=== PATIENT | male | born 1985 | race Two or more races ===

== ENCOUNTER 2018-02-17 12:50 | Inpatient (IN) | payer MEDICARE, OTHER ==
[~2018-02-17] VITALS: Ht 162.6 cm; Wt 60.8 kg
[~2018-02-17 12:50] MED LIST: AMBIEN10 M1 ORAL; AMBIEN10 MG ORAL; AZITHROMYCIN250 MG ORAL; CALCIUM ACETAT667 M1 ORAL; HYDROCODON-ACE1 EAC8 PO; LEVETIRACETAM500 MG ORAL; NORCO 5-325 TA1 EACH ORAL; NORCO 7.5-3251 EACH ORAL; NORVASC5 MG ORAL; RENVELA800 MG ORAL; SENSIPAR30 MG ORAL
[2018-02-17] MEDS ORDERED: NS 250 ML IVPB ONE (13:15)
[2018-02-17] MEDS ORDERED: Morphine Sulfate 4mg/ml Inj (IV USE ONLY) IVP ONE (13:15)
[2018-02-17 13:22] VITALS: BP 173/87
[2018-02-17 13:52] LABS: ANION GAP 10 mmol/L (5-15); BLOOD UREA NITROGEN 22 mg/dL (7-18); CALCIUM 9.3 MG/DL (8.5-10.1); CARBON DIOXIDE 28 MMOL/L (21-32); CHLORIDE 107 MMOL/L (98-107); CREATININE 6.9 MG/DL (0.55-1.30); POTASSIUM 4.3 MMOL/L (3.5-5.1); SODIUM 145 MMOL/L (136-145)
[2018-02-17] MEDS ORDERED: DiphenhydrAMINE 50mg/ml Inj IVP ONE (14:00)
[2018-02-17 14:07] LABS: ALANINE AMINOTRANSFERASE 30 U/L (12-78); ALBUMIN 4.1 G/DL (3.4-5.0); ALBUMIN/GLOBULIN RATIO 1.1 (1.0-2.7); ALKALINE PHOSPHATASE 176 U/L (46-116); ASPARTATE AMINO TRANSFERASE 25 U/L (15-37); BILIRUBIN,TOTAL 0.4 MG/DL (0.2-1.0); CREATINE KINASE 157 U/L (26-308)
[2018-02-17 14:18] LABS: HEMATOCRIT 30.6 % (42.0-52.0); HEMOGLOBIN 10.4 G/DL (14.2-18.0); MEAN CORPUSCULAR VOLUME 95 FL (80-99); PLATELET COUNT 78 K/UL (150-450); RED BLOOD COUNT 3.22 M/UL (4.70-6.10); RED CELL DISTRIBUTION WIDTH 11.3 % (11.6-14.8); WHITE BLOOD COUNT 4.8 K/UL (4.8-10.8)
--- NOTE | 2018-02-17 14:38 | Emergency Room Report ---
History of Present Illness General Chief Complaint: Abdominal Pain Source: Patient, Medical Record Present Illness HPI 32-year-old male presents ED for evaluation. Brought in for abdominal pain and vomiting. patient has history of end-stage renal disease on dialysis. Patient was at dialysis when he started to vomit and did not complete dialysis. Skipped dialysis yesterday. Presenting with abdominal pain and vomiting. Pain is sharp, 10 out of 10, nonradiating. Denies chest pain or shortness of breath. No other aggravating relieving factors. Denies any other associated symptoms Allergies: Uncoded Allergies: FISH (Adverse Reaction, Severe, NAUSEA,VOMITING, 09/24/11) MILK (Adverse Reaction, Severe, NAUSEA,VOMITING, 09/24/11) Patient History Past Medical History: HTN, renal disease, dialysis Past Surgical History: none Pertinent Family History: none Social History: Denies: smoking, alcohol use, drug use Immunizations: UTD Reviewed Nursing Documentation: PMH: Agreed; PSxH: Agreed Nursing Documentation-PMH Hx Cardiac Problems: No Hx Hypertension: Yes Hx Pacemaker: No Hx Asthma: No Hx COPD: No Hx Diabetes: No Hx Cancer: No Hx Gastrointestinal Problems: No Hx Dialysis: Yes - Wed Hx Neurological Problems: No Hx Cerebrovascular Accident: No Hx Seizures: No Review of Systems All Other Systems: negative except mentioned in HPI Physical Exam Vital Signs Date Time Temp Pulse Resp B/P (MAP) Pulse Ox O2 Delivery O2 Flow Rate FiO2 02/17/18 12:54 66 25 178/5 100 Room Air Sp02 EP Interpretation: reviewed, normal General Appearance: alert, GCS 15, non-toxic, mild distress Head: normocephalic, atraumatic Eyes: bilateral eye normal inspection, bilateral eye PERRL ENT: hearing grossly normal, normal pharynx, no angioedema, normal voice Neck: full range of motion, supple/symm/no masses Respiratory: chest non-tender, lungs clear, normal breath sounds, speaking full sentences Cardiovascular #1: regular rate, rhythm, no edema Cardiovascular #2: 2+ carotid (R), 2+ carotid (L), 2+ radial (R), 2+ radial (L) , 2+ dorsalis pedis (R), 2+ dorsalis pedis (L) Gastrointestinal: normal bowel sounds, soft, non-distended, no guarding, no rebound, tenderness Rectal: deferred Genitourinary: normal inspection, no CVA tenderness Musculoskeletal: back normal, gait/station normal, normal range of motion, non- tender Neurologic: alert, oriented x3, responsive, motor strength/tone normal, sensory intact, speech normal Psychiatric: judgement/insight normal, memory normal, mood/affect normal, no suicidal/homicidal ideation Reflexes: 3+ bicep (R), 3+ bicep (L), 3+ tricep (R), 3+ tricep (L), 3+ knee (R) , 3+ knee (L) Skin: normal color, no rash, warm/dry, well hydrated Lymphatic: no adenopathy Medical Decision Making Restraint Reassesment Hospital Course 32 yo M presents with abd pain/vomiting. missed dialysis today Differential diagnoses include: BPH, cystitis, pyelonephritis, kidney stone Clinical course Patient placed on stretcher. monitoring analyst. After initial history and physical I ordered labs, IV fluids, UA, pain medication and CT scan Labs - no leukocytosis, Hb/Hct stable, BUN/Cr 22/6.9, lipase 400 EKG - NSR no acute ischemic changes interpreted by me on reassessment pain is improved, but patient still unable to tolerate by mouth intake. Will require admission Case discussed with Dr. Downs and he agreed to accept the patient to his service for further care and support I feel this is a highly complex case requiring extensive working including EKG/ Rhythm strip, Xray/CT/US, Blood/urine lab work, repeat exams while in ED, and administration of strong opiates/narcotics for pain control, admission to hospital or close patient follow up. Diagnosis - ESRD on dialysis, abd pain, intractable pain Patient admitted to floor in serious condition Diagnostic Impression: Primary Impression: ESRD (end stage renal disease) on dialysis Additional Impressions: abdominal pain Intractable vomiting Qualified Codes: R11.2 - Nausea with vomiting, unspecified Labs Test 02/17/18 13:02 02/17/18 14:00 Sodium Level 145 MMOL/L (136-145) Potassium Level 4.3 MMOL/L (3.5-5.1) Chloride Level 107 MMOL/L (98-107) Carbon Dioxide Level 28 MMOL/L (21-32) Anion Gap 10 mmol/L (5-15) Blood Urea Nitrogen 22 mg/dL (7-18) Creatinine 6.9 MG/DL (0.55-1.30) Estimat Glomerular Filtration Rate 9.2 mL/min (>60) Glucose Level 104 MG/DL (74-106) Calcium Level 9.3 MG/DL (8.5-10.1) Total Bilirubin 0.4 MG/DL (0.2-1.0) Aspartate Amino Transf (AST/SGOT) 25 U/L (15-37) Alanine Aminotransferase (ALT/SGPT) 30 U/L (12-78) Alkaline Phosphatase 176 U/L (46-116) Total Creatine Kinase 157 U/L (26-308) Creatine Kinase MB 1.0 NG/ML (0.0-3.6) Creatine Kinase MB Relative Index 0.6 Troponin I 0.000 ng/mL (0.000-0.056) Total Protein 7.9 G/DL (6.4-8.2) Albumin 4.1 G/DL (3.4-5.0) Globulin 3.8 g/dL Albumin/Globulin Ratio 1.1 (1.0-2.7) Lipase 400 U/L (73-393) White Blood Count 4.8 K/UL (4.8-10.8) Red Blood Count 3.22 M/UL (4.70-6.10) Hemoglobin 10.4 G/DL (14.2-18.0) Hematocrit 30.6 % (42.0-52.0) Mean Corpuscular Volume 95 FL (80-99) Mean Corpuscular Hemoglobin 32.3 PG (27.0-31.0) Mean Corpuscular Hemoglobin Concent 34.0 G/DL (32.0-36.0) Red Cell Distribution Width 11.3 % (11.6-14.8) Platelet Count 78 K/UL (150-450) Mean Platelet Volume 9.2 FL (6.5-10.1) Neutrophils (%) (Auto) % (45.0-75.0) Lymphocytes (%) (Auto) % (20.0-45.0) Monocytes (%) (Auto) % (1.0-10.0) Eosinophils (%) (Auto) % (0.0-3.0) Basophils (%) (Auto) % (0.0-2.0) EKG Diagnostic Results Rate: bradycardiac Rhythm: NSR ST Segments: no acute changes ASA given to the pt in ED: No Rhythm Strip Diag. Results EP Interpretation: yes Rhythm: NSR, no PVC's, no ectopy Last Vital Signs Date Time Temp Pulse Resp B/P (MAP) Pulse Ox O2 Delivery O2 Flow Rate FiO2 02/17/18 13:22 61 25 173/87 100 Room Air Status: improved Disposition: ADMITTED INPATIENT Condition: Serious Referrals: Thelma Go MD (PCP) Jonathan Morris MD Feb 17, 2018 14:38
[2018-02-17 15:04] VITALS: BP 154/80
[2018-02-17 18:39] VITALS: BP 143/56
[2018-02-17 20:00] VITALS: BP 144/78
[2018-02-17] MEDS ORDERED: Acetaminophen 500mg (ES) tab ORAL PRN (23:15)
[2018-02-17] MEDS ORDERED: Zolpidem 5mg tab ORAL PRN (23:15)
[2018-02-17] MEDS ORDERED: HYDROcodone/Acetamin 7.5/325 tab ORAL PRN (23:15)
[2018-02-18] VITALS: BP 127/74
[2018-02-18] MEDS: DiphenhydrAMINE 50mg/ml Inj IVP PRN ×3 (00:55→20:41)
--- NOTE | 2018-02-18 01:30 | History and Physical Report ---
DATE OF ADMISSION: 02/17/2018 CHIEF COMPLAINT: Nausea, vomiting and abdominal pain. HISTORY OF PRESENT ILLNESS: This is a 32-year-old male, who had a partial dialysis today. He was brought in for abdominal pain, nausea and vomiting. The complaints were limited to during the dialysis, but started earlier this morning. PAST MEDICAL HISTORY: 1. End-stage renal failure, on dialysis. 2. Status post intracerebral bleeding about 7 years ago. 3. Seizure disorder. 4. History of Cholelithiasis. MEDICATIONS: [place] p.r.n., amlodipine, calcium acetate with meals, Sensipar, Keppra and Ambien. ALLERGIES: None known to medications. He is allergic to fish and milk. FAMILY HISTORY: Unremarkable. SOCIAL HISTORY: He lives at home. HABITS: Nonsmoker and nondrinker. There is no history of illicit drug abuse. REVIEW OF SYSTEMS: HEENT: Hearing and eyesight are normal. ENDOCRINE: No history of diabetes. He has secondary hyperparathyroidism. RESPIRATORY: Denies shortness of breath, cough, or hemoptysis. GASTROINTESTINAL: Please refer to history of present illness. NEUROLOGICAL: The patient had intercerebral bleed about 7 years ago when he started dialysis. He also has history of seizures. PHYSICAL EXAMINATION: GENERAL: This is a young chronically ill-appearing male who is in no acute distress. VITAL SIGNS: Blood pressure 173/87, pulse 61 and regular, and respirations 25. HEENT: The head is normocephalic and atraumatic. Pupils are equal, round, and reactive to light and accommodation consensually. NECK: Supple. Trachea midline. There was no lymphadenopathy or thyromegaly. LUNGS: Clear to auscultation and percussion. HEART: Regular rate and rhythm without rubs, murmurs, or gallops noted. ABDOMEN: Soft and nontender. Bowel sounds were active. EXTREMITIES: No clubbing, cyanosis, or edema. NEUROLOGICAL: He is alert and oriented x4. He is dysarthric. He has left hemiparesis. LABORATORY AND ANCILLARY DATA: CBC, hemoglobin 10.4, otherwise within normal limits. Chemistry, electrolytes within normal limits. BUN 22, creatinine 6.9 and alkaline phosphatase 176. Albumin 4.1. ASSESSMENT: Nausea and vomiting, etiology unclear. PLAN: 1. Obtain the abdominal ultrasound. 2. Consider GI consult. Thelma Go M.D. DR: SHANNAN JOB#: [id number] CC: ARIS
[2018-02-18 04:00] VITALS: BP 129/72
[2018-02-18] MEDS: Norco 5mg/325mg tab ORAL PRN ×2 (05:12→17:06)
[2018-02-18 08:00] VITALS: BP 132/78
[2018-02-18] MEDS ORDERED: Heparin 5000 units/ml inj SUBQ SCH (09:00)
--- NOTE | 2018-02-18 10:57 | Nephrology Progress Note ---
Assessment/Plan Plan Vomiting - had Abd US done. Results P ESRD _HD soon. Subjective Subjective Less Nausea. Objective Objective Last 24 Hour Vital Signs Date Time Temp Pulse Resp B/P (MAP) Pulse Ox O2 Delivery O2 Flow Rate FiO2 02/18/18 09:00 Room Air 02/18/18 04:00 97.2 53 20 129/72 (91) 100 97.2 02/18/18 00:00 98.3 57 20 127/74 (91) 100 98.3 02/17/18 21:00 Room Air 02/17/18 20:00 98.6 53 18 144/78 (100) 100 98.6 02/17/18 18:39 99.4 71 20 143/56 100 Room Air 99.4 02/17/18 18:15 Room Air 02/17/18 17:40 99.4 65 20 154/80 100 Room Air 99.4 02/17/18 15:04 99.4 65 20 154/80 100 Room Air 99.4 02/17/18 13:22 61 25 173/87 100 Room Air 02/17/18 12:54 66 25 178/5 100 Room Air Intake and Output 02/17/18 02/18/18 19:00 07:00 Intake Total 250 ml Balance 250 ml Intake IV Total 250 ml # Voids 1 Laboratory Tests 02/17/18 13:02: Sodium Level 145, Potassium Level 4.3, Chloride Level 107, Carbon Dioxide Level 28, Anion Gap 10, Blood Urea Nitrogen 22H, Creatinine 6.9H, Estimat Glomerular Filtration Rate 9.2, Glucose Level 104, Calcium Level 9.3, Total Bilirubin 0.4, Aspartate Amino Transf (AST/SGOT) 25, Alanine Aminotransferase (ALT/SGPT) 30, Alkaline Phosphatase 176H, Total Creatine Kinase 157, Creatine Kinase MB 1.0, Creatine Kinase MB Relative Index 0.6, Troponin I 0.000, Total Protein 7.9, Albumin 4.1, Globulin 3.8, Albumin/Globulin Ratio 1.1, Lipase 400H 02/17/18 14:00: White Blood Count 4.8, Red Blood Count 3.22L, Hemoglobin 10.4L, Hematocrit 30.6L , Mean Corpuscular Volume 95, Mean Corpuscular Hemoglobin 32.3H, Mean Corpuscular Hemoglobin Concent 34.0, Red Cell Distribution Width 11.3L, Platelet Count 78L, Mean Platelet Volume 9.2, Neutrophils (%) (Auto) , Lymphocytes (%) (Auto) , Monocytes (%) (Auto) , Eosinophils (%) (Auto) , Basophils (%) (Auto) , Differential Total Cells Counted 100, Neutrophils % ( Manual) 75, Lymphocytes % (Manual) 14L, Monocytes % (Manual) 7, Eosinophils % ( Manual) 3, Basophils % (Manual) 1, Band Neutrophils 0, Platelet Estimate DecreasedL, Platelet Morphology Normal, Hypochromasia 1+, Anisocytosis 1+ Height (Feet): 5 Height (Inches): 4.00 Weight (Pounds): 150 Objective CV RR Lungs CTA Abd SNT. BS + E no CCE. AMY AVF+ bruit Neuro Lt. hemiparesis Thelma Go MD Feb 18, 2018 10:57
--- NOTE | 2018-02-18 11:34 | Diagnostic Imaging Report ---
Indication: Abdominal pain, vomiting, abnormal liver function tests and renal function tests, history of chronic renal failure Technique: Kumar-scale and duplex images of the upper abdomen were obtained. Doppler interrogation of the hepatic vessels Comparison: No comparison sonograms. Reference made to abdomen pelvis CT 09/23/2011 Findings: Gallbladder contains large gallstones. No gallbladder wall thickening nor pericholecystic fluid Sonographic Omer's sign is negative. Common bile duct measures 3 mm in diameter. No intrahepatic biliary ductal dilatation. Liver demonstrates normal echogenicity, no focal abnormality. Portal vein and hepatic veins are patent on Doppler imaging. Pancreas is unremarkable. The spleen is borderline enlarged, measuring 13 cm long axis dimension Left kidney measures 9.7 cm in length. Right kidney measures 9.9 cm length. Both kidneys demonstrate markedly increased echogenicity. There is no hydronephrosis. There are multiple cysts in the left kidney and right kidney . Non-aneurysmal abdominal aorta . Impression: Cholelithiasis. Negative for dilated ducts Bilateral echogenic kidneys, consistent with known history of chronic renal failure Borderline splenomegaly Incidental finding bilateral renal cysts
[2018-02-18 12:00] VITALS: BP 134/76
[2018-02-18 13:47] LABS: HEMOGLOBIN 9.1 G/DL (14.2-18.0); MEAN CORPUSCULAR VOLUME 96 FL (80-99); PLATELET COUNT 80 K/UL (150-450); RED BLOOD COUNT 2.83 M/UL (4.70-6.10); RED CELL DISTRIBUTION WIDTH 11.7 % (11.6-14.8); WHITE BLOOD COUNT 4.9 K/UL (4.8-10.8)
[2018-02-18 14:05] LABS: ALANINE AMINOTRANSFERASE 32 U/L (12-78); ALBUMIN 3.1 G/DL (3.4-5.0); ALKALINE PHOSPHATASE 129 U/L (46-116); AMYLASE 148 U/L (25-115); ANION GAP 9 mmol/L (5-15); ASPARTATE AMINO TRANSFERASE 15 U/L (15-37); BILIRUBIN,DIRECT < 0.1 MG/DL (0.0-0.3); BILIRUBIN,TOTAL 0.2 MG/DL (0.2-1.0); BLOOD UREA NITROGEN 38 mg/dL (7-18); CALCIUM 8.2 MG/DL (8.5-10.1); CARBON DIOXIDE 28 MMOL/L (21-32); CHLORIDE 109 MMOL/L (98-107); CREATININE 10.1 MG/DL (0.55-1.30); POTASSIUM 5.4 MMOL/L (3.5-5.1); SODIUM 145 MMOL/L (136-145)
[2018-02-18] MEDS ORDERED: Morphine Sulfate 2mg/ml Inj IVP SCH (15:15)
[2018-02-18] MEDS ORDERED: Heparin Sod 1000 units/ml 10ml IV ONE (16:15)
--- NOTE | 2018-02-18 17:24 | Diagnostic Imaging Report ---
Indications: Reason For Exam: GB Technique: IV administration 5.4 mCi 99 M technetium Choletec. Serial images obtained over the abdomen for one hour Comparison: None Findings: Prompt tracer uptake within the liver. Extrahepatic bile ducts are seen at minutes. Excretion into the duodenum demonstrated at 13 minutes. Gallbladder visualized at 49 minutes. Impression: Negative
[2018-02-18 21:00] VITALS: BP 147/76
[2018-02-19] VITALS: BP 125/71
[2018-02-19] MEDS: DiphenhydrAMINE 50mg/ml Inj IVP PRN ×2 (02:43→09:31)
[2018-02-19 04:00] VITALS: BP 122/80
[2018-02-19 08:00] VITALS: BP 116/67
--- NOTE | 2018-02-19 10:24 | Nephrology Progress Note ---
Assessment/Plan Plan Vomiting - had Abd US done. Results known cholelithiasis. HIDA scan negative. DC home. Outpatient elective Sx. ESRD _HD done yesterday.. Subjective Subjective No Nausea. Had HD yesterday Objective Objective Last 24 Hour Vital Signs Date Time Temp Pulse Resp B/P (MAP) Pulse Ox O2 Delivery O2 Flow Rate FiO2 02/19/18 08:00 98.3 74 20 116/67 (83) 91 98.3 02/19/18 04:00 98.2 66 20 122/80 (94) 100 98.2 02/19/18 00:00 98.0 63 16 125/71 (89) 100 98.0 02/18/18 21:00 97.7 62 20 147/76 (99) 100 97.7 02/18/18 21:00 Room Air 02/18/18 12:00 97.8 58 20 134/76 (95) 100 97.8 Intake and Output 02/18/18 02/19/18 19:00 07:00 Intake Total 450 ml Balance 450 ml Other 450 ml # Voids 4 Laboratory Tests 02/18/18 13:30: White Blood Count 4.9, Red Blood Count 2.83L, Hemoglobin 9.1L, Hematocrit 27.0L , Mean Corpuscular Volume 96, Mean Corpuscular Hemoglobin 32.1H, Mean Corpuscular Hemoglobin Concent 33.5, Red Cell Distribution Width 11.7, Platelet Count 80L, Mean Platelet Volume 9.4, Neutrophils (%) (Auto) , Lymphocytes (%) ( Auto) , Monocytes (%) (Auto) , Eosinophils (%) (Auto) , Basophils (%) (Auto) , Differential Total Cells Counted 100, Neutrophils % (Manual) 63, Lymphocytes % ( Manual) 30, Monocytes % (Manual) 3, Eosinophils % (Manual) 4H, Basophils % ( Manual) 0, Band Neutrophils 0, Platelet Estimate DecreasedL, Platelet Morphology Normal, Red Blood Cell Morphology , Anisocytosis 1+, Sodium Level 145 , Potassium Level 5.4H, Chloride Level 109H, Carbon Dioxide Level 28, Anion Gap 9, Blood Urea Nitrogen 38H, Creatinine 10.1H, Estimat Glomerular Filtration Rate 5.9, Glucose Level 132H, Calcium Level 8.2L, Total Bilirubin 0.2, Direct Bilirubin < 0.1, Aspartate Amino Transf (AST/SGOT) 15, Alanine Aminotransferase (ALT/SGPT) 32, Alkaline Phosphatase 129H, Total Protein 6.1L, Albumin 3.1L, Globulin 3.0, Albumin/Globulin Ratio 1.0, Amylase Level 148H Height (Feet): 5 Height (Inches): 4.00 Weight (Pounds): 134 Objective CV RR Lungs CTA Abd SNT. BS + E no CCE. AMY AVF+ bruit Neuro Lt. hemiparesis Thelma Go MD Feb 19, 2018 10:24
[2018-02-19 12:00] VITALS: BP_SYST 141; BP_SYST 142; BP_DIAS 83; BP_DIAS 94
--- NOTE | 2018-02-21 14:55 | Cardiology Report ---
APPROVED REPORT EKG Measurement Heart [id number] Sinus bradycardia Otherwise normal ECG
--- NOTE | 2018-02-23 07:36 | Discharge Summary ---
Discharge Summary Discharge Summary _ DATE OF ADMISSION: 02/17/2018 DATE OF DISCHARGE: 02/19/2018 REASON FOR ADMISSION: 32 years old male with past medical history of end-stage renal disease, on hemodialysis, seizure disorder, e status post intracerebral bleeding about 7 years ago, presented to emergency room with abdominal pain ,nausea and vomiting. Patient had partial dialysis earlier that day. Upon evaluation in emergency department vital signs were stable. Laboratory workup revealed no leukocytosis, hemoglobin 10.4, hematocrit 30.6. BUN 22 ,creatinine 6.9 ,consistent with known history of end-stage renal disease. Troponin negative. EKG revealed normal sinus rhythm, nol acute ischemic changes. Lipase 400. LFT within normal limits . Patient admitted with diagnoses of abdominal pain, nausea and vomiting. HOSPITAL COURSE: Patient admitted. Abdominal ultrasound revealed cholelithiasis, but was negative for dilated ducts. It demonstrated bilateral echogenic kidney , consistent with known history of chronic renal failure. Borderline splenomegaly. Subsequently HIDA scan was done, which was negative. Patient slowly started on diet. Supportive care provided ; antiemetics administered as needed. DVT and GI prophylaxis provided. Pain management was addressed, and pain was controlled. Diet slowly advanced as tolerated. Patient was able to tolerate diet. Blood pressure was closely monitored, remained stable. Hemoglobin and hematocrit closely monitored, remained at baseline. Seizure precautions maintained. Keppra continued. No evidence of seizure activity while in the hospital. Patient improved symptomatically and was stable for discharge home FINAL DIAGNOSES: Abdominal pain with nausea and vomiting, likely related to cholelithiasis End-stage renal disease , on hemodialysis Seizure disorder History of intracerebral bleeding DISCHARGE MEDICATIONS: See Medication Reconciliation list. DISCHARGE INSTRUCTIONS: Patient was discharged home . Follow up with primary care provider in one week. Follow-up with outpatient hemodialysis schedule. I have been assigned to dictate discharge summary for this account. I was not involved in the patient's management. Cheyanne Moreno NP Feb 23, 2018 07:36
== END 2018-02-19 12:40 | disposition home or self-care (01) | DRG 444 ==
LOC: EMR 13:50 → 4E 13:57 → EDBEDREQ 17:07
DX: K80.20 Calculus of gallbladder without cholecystitis without obstruction (principal); N18.6 End stage renal disease; N25.81 Secondary hyperparathyroidism of renal origin; R10.9 Unspecified abdominal pain; R11.2 Nausea with vomiting, unspecified; Z99.2 Dependence on renal dialysis; G40.909 Epilepsy, unspecified, not intractable, without status epilepticus
CPT/HCPCS: 36415; 76700; 78266; 80053; 80299; 82150; 82248; 82550; 82553; 83690; 84484; 85007; 85025; 87081; 93005; 96374; 96375; 99285; J2405

== ENCOUNTER 2018-09-18 00:05 | Inpatient (IN) | payer MEDICARE, OTHER ==
[~2018-09-18] VITALS: Ht 160 cm; Wt 59.4 kg
[2018-09-18] VITALS (9 sets, daily range): BP systolic 116–165; BP diastolic 60–111
--- NOTE | 2018-09-18 00:12 | NUR ---
CALLED PATIENT; NOT IN WAITING ROOM.
--- NOTE | 2018-09-18 00:35 | NUR ---
ED Nurse Note: pATIENT PRESENTS WITH SIGNIFICANT OTHER WITH C/O NOT WANTING TO LIVE ANY MORE AND TAKING MULTIPLE MEDICATIONS.
[2018-09-18] MEDS ORDERED: NS 250 ML IVPB ONE (00:45)
[2018-09-18] MEDS ORDERED: Activated Charcoal 50gm/240ml Btl ORAL ONE (00:45)
[2018-09-18 01:32] LABS: BASOPHILS % (AUTO) 0.6 % (0.0-2.0); EOSINOPHILS % (AUTO) 2.1 % (0.0-3.0); HEMATOCRIT 29.5 % (42.0-52.0); LYMPHOCYTES % (AUTO) 16.3 % (20.0-45.0); MEAN CORPUSCULAR VOLUME 97 FL (80-99); MONOCYTES % (AUTO) 4.7 % (1.0-10.0); NEUTROPHILS % (AUTO) 76.3 % (45.0-75.0); PLATELET COUNT 153 K/UL (150-450); RED BLOOD COUNT 3.04 M/UL (4.70-6.10); RED CELL DISTRIBUTION WIDTH 11.8 % (11.6-14.8); WHITE BLOOD COUNT 7.3 K/UL (4.8-10.8)
--- NOTE | 2018-09-18 01:47 | NUR ---
ED Nurse Note: Patient tolerated charcoal well. patient is resting with mom at bedside.
[2018-09-18 01:50] LABS: ANION GAP 13 mmol/L (5-15); BLOOD UREA NITROGEN 42 mg/dL (7-18); CARBON DIOXIDE 30 MMOL/L (21-32); CHLORIDE 98 MMOL/L (98-107); CREATININE 9.6 MG/DL (0.55-1.30); POTASSIUM 3.9 MMOL/L (3.5-5.1); SODIUM 141 MMOL/L (136-145)
--- NOTE | 2018-09-18 02:02 | NUR ---
ED Nurse Note: REaffirmed with patient's mother that patient no longer makes urine.
[2018-09-18 02:04] LABS: ALANINE AMINOTRANSFERASE 52 U/L (12-78); ALBUMIN 4.2 G/DL (3.4-5.0); ALKALINE PHOSPHATASE 111 U/L (46-116); ASPARTATE AMINO TRANSFERASE 24 U/L (15-37); BILIRUBIN,TOTAL 0.4 MG/DL (0.2-1.0); CKMB 0.6 NG/ML (0.0-3.6); CREATINE KINASE 73 U/L (26-308)
--- NOTE | 2018-09-18 04:33 | NUR ---
paged several times with no respond. texted to for admission.
--- NOTE | 2018-09-18 05:00 | Emergency Room Report ---
History of Present Illness General Chief Complaint: Overdose Source: Patient Present Illness HPI 32-year-old male since ED for evaluation. Patient brought in by family for overdose. States that he took multiple tablets of [place] and Ambien tonight. Patient is lethargic upon arrival but answering questions. States that he was trying to hurt himself. History of end-stage renal disease on dialysis. Gets dialysis Wednesday. Denies alcohol. Denies chest pain or shortness of breath. Denies nausea or vomiting. No other aggravating relieving factors. Denies any other associated symptoms Allergies: Uncoded Allergies: FISH (Adverse Reaction, Severe, NAUSEA,VOMITING, 09/24/11) MILK (Adverse Reaction, Severe, NAUSEA,VOMITING, 09/24/11) Patient History Past Medical History: HTN, renal disease, dialysis Past Surgical History: none Pertinent Family History: none Social History: Denies: smoking, alcohol use, drug use Immunizations: UTD Reviewed Nursing Documentation: PMH: Agreed; PSxH: Agreed Nursing Documentation-PMH Past Medical History: No History, Except For Hx Cardiac Problems: No Hx Hypertension: Yes Hx Pacemaker: No Hx Asthma: No Hx COPD: No Hx Diabetes: No Hx Cancer: No Hx Gastrointestinal Problems: No Hx Dialysis: Yes - Wed Hx Neurological Problems: No Hx Cerebrovascular Accident: No Hx Seizures: No Review of Systems All Other Systems: negative except mentioned in HPI Physical Exam Vital Signs Date Time Temp Pulse Resp B/P (MAP) Pulse Ox O2 Delivery O2 Flow Rate FiO2 09/18/18 00:21 99.0 81 22 100 Room Air 09/18/18 00:38 157/111 Sp02 EP Interpretation: reviewed, normal General Appearance: no apparent distress, GCS 15, non-toxic, lethargic Head: normocephalic, atraumatic Eyes: bilateral eye normal inspection, bilateral eye PERRL ENT: hearing grossly normal, normal pharynx, no angioedema, normal voice Neck: full range of motion, supple/symm/no masses Respiratory: chest non-tender, lungs clear, normal breath sounds, speaking full sentences Cardiovascular #1: regular rate, rhythm, no edema Cardiovascular #2: 2+ carotid (R), 2+ carotid (L), 2+ radial (R), 2+ radial (L) , 2+ dorsalis pedis (R), 2+ dorsalis pedis (L) Gastrointestinal: normal bowel sounds, non tender, soft, non-distended, no guarding, no rebound Rectal: deferred Genitourinary: normal inspection, no CVA tenderness Musculoskeletal: back normal, gait/station normal, normal range of motion, non- tender Neurologic: alert, responsive, motor strength/tone normal, sensory intact, speech normal, other - lethargic Psychiatric: depressed affect, anxious Reflexes: 3+ bicep (R), 3+ bicep (L), 3+ tricep (R), 3+ tricep (L), 3+ knee (R) , 3+ knee (L) Skin: normal color, no rash, warm/dry, well hydrated Lymphatic: no adenopathy Medical Decision Making Diagnostic Impression: Primary Impression: Drug overdose Qualified Codes: T50.902A - Poisoning by unspecified drugs, medicaments and biological substances, intentional self-harm, initial encounter Additional Impression: ESRD (end stage renal disease) on dialysis ER Course Hospital Course 32-year-old female presents to ED with altered mental status. Took several pills in suicide attempt Differential diagnoses include: Post ictal, Dilantin toxicity, alcohol toxicity , intracranial injury Clinical course She placed on stretcher. On cardiac catheterization technician. After initial history and physical ordered labs, EKG, IVFs, charcoal Labs reviewed- BUN/Cr elevated, initial ASA/tylenol levels negative, no leukocytosis, hb/hct stable EKG - NSR, no acute ischemic changes interpreted by me Patient given charcoal. Patient cannot be cleared for outpatient psychiatric evaluation as he is a dialysis patient. Patient will require admission and psychiatric evaluation case discussed with Dr. Ray and he agreed to accept the patient to his service for further care and support i. I feel this is a highly complex case requiring extensive working including EKG/Rhythm strip, Xray/CT/US, Blood/urine lab work, repeat exams while in ED, and administration of strong opiates/narcotics for pain control, admission to hospital or close patient follow up. Diagnosis - drug overdose, ESRD on dialysis Admitted to telemetry in serious condition Labs Test 09/18/18 01:04 White Blood Count 7.3 K/UL (4.8-10.8) Red Blood Count 3.04 M/UL (4.70-6.10) Hemoglobin 10.0 G/DL (14.2-18.0) Hematocrit 29.5 % (42.0-52.0) Mean Corpuscular Volume 97 FL (80-99) Mean Corpuscular Hemoglobin 32.8 PG (27.0-31.0) Mean Corpuscular Hemoglobin Concent 33.8 G/DL (32.0-36.0) Red Cell Distribution Width 11.8 % (11.6-14.8) Platelet Count 153 K/UL (150-450) Mean Platelet Volume 7.4 FL (6.5-10.1) Neutrophils (%) (Auto) 76.3 % (45.0-75.0) Lymphocytes (%) (Auto) 16.3 % (20.0-45.0) Monocytes (%) (Auto) 4.7 % (1.0-10.0) Eosinophils (%) (Auto) 2.1 % (0.0-3.0) Basophils (%) (Auto) 0.6 % (0.0-2.0) Sodium Level 141 MMOL/L (136-145) Potassium Level 3.9 MMOL/L (3.5-5.1) Chloride Level 98 MMOL/L (98-107) Carbon Dioxide Level 30 MMOL/L (21-32) Anion Gap 13 mmol/L (5-15) Blood Urea Nitrogen 42 mg/dL (7-18) Creatinine 9.6 MG/DL (0.55-1.30) Estimat Glomerular Filtration Rate 6.3 mL/min (>60) Glucose Level 151 MG/DL (74-106) Calcium Level 10.0 MG/DL (8.5-10.1) Total Bilirubin 0.4 MG/DL (0.2-1.0) Aspartate Amino Transf (AST/SGOT) 24 U/L (15-37) Alanine Aminotransferase (ALT/SGPT) 52 U/L (12-78) Alkaline Phosphatase 111 U/L (46-116) Total Creatine Kinase 73 U/L (26-308) Creatine Kinase MB 0.6 NG/ML (0.0-3.6) Creatine Kinase MB Relative Index 0.8 Troponin I 0.000 ng/mL (0.000-0.056) Total Protein 8.4 G/DL (6.4-8.2) Albumin 4.2 G/DL (3.4-5.0) Globulin 4.2 g/dL Albumin/Globulin Ratio 1.0 (1.0-2.7) Salicylates Level < 0.2 ug/mL (2.8-20) Acetaminophen Level < 2 MCG/ML (10-30) Serum Alcohol < 3 mg/dL EKG Diagnostic Results Rate: normal Rhythm: NSR ST Segments: no acute changes ASA given to the pt in ED: No Rhythm Strip Diag. Results EP Interpretation: yes Rhythm: NSR, no PVC's, no ectopy Last Vital Signs Date Time Temp Pulse Resp B/P (MAP) Pulse Ox O2 Delivery O2 Flow Rate FiO2 09/18/18 01:52 145/91 09/18/18 01:48 99.0 84 21 100 Room Air Status: improved Disposition: ADMITTED INPATIENT Condition: Serious Referrals: NOT CHOSEN IPA/,REFERRING (PCP) Jonathan Morris MD September 18, 2018 05:00
--- NOTE | 2018-09-18 05:03 | NUR ---
ED Nurse Note: Called tele to give report for 211, was told the nurse was unavailable and would call me back.
--- NOTE | 2018-09-18 05:25 | NUR ---
ED Nurse Note: Called and gave report to Arnaldo RN. Nurse states she needs a few more minutes to be ready.
--- NOTE | 2018-09-18 06:20 | NUR ---
NURSE NOTES: Received report from ER nurse Grace RN, pt. transferred to telemetry- per ER Nurse Grace she checked belongings and that pt. only has clothes. I checked patients pockets and discovered a twisted metal wire, two keys with pierre chain, and bottle shoe parts caser, 1 pen, a pipe, workers compensation adjuster, broken cigarette, some loose change adding to $1.35, comb, a box gender studies professor but no wire,also removed belt off patients pants and shoe laces of tennis shoes- as patient is actively talking about dying and stating he does not want help and wants to . notified warehouse specialist Micah and sent belonging to security- charge nurse Feliberto quinteros. Patients Jeans and shirt and white under sleeveless shirt and tennis shoes with out laces remain at bedside. monitoring engineer is placed and pt. is in room with bed in lowest position and call light within easy reach, bed alarm on and side rails up x's3 and safety brakes engaged. Pt. is not allowing me to do assessment and keeps stating he does not want help and wants to . pt. remains with sitter at bedside to monitor patient, will continue to monitor pt. and with plan of care.
--- NOTE | 2018-09-18 07:15 | NUR ---
NURSE NOTES: Received report from OJ Zheng. Patient asleep and sitter is at the bedside. Will continue plan of care.
--- NOTE | 2018-09-18 07:21 | NUR ---
HAND-OFF: Report given to Eom RN, pt. in room with sitter- reamins stable and no distress noted- nurse aware to get orders from doctor for admission.
[2018-09-18] MEDS: Sensipar 30mg Tab ORAL SCH ×2 (08:53→09:00)
--- NOTE | 2018-09-18 09:45 | NUR ---
NURSE NOTES: Patient refused all medications. Explained benefits and risks x3. Patient still refused. Sitter is at the bedside.
--- NOTE | 2018-09-18 11:45 | NUR ---
NURSE NOTES: Seen by Dr. Go and notified that patient refused all medication. He said we need to give keppra at least. talked with patient.
--- NOTE | 2018-09-18 11:55 | NUR ---
NURSE NOTES: Patient took keppra 500mg po. Will continue plan of care.
--- NOTE | 2018-09-18 12:10 | NUR ---
NURSE NOTES: Called [facility] and confirmed HD for 09/19/18 with Paty.
--- NOTE | 2018-09-18 14:20 | NUR ---
CASE MANAGEMENT: REVIEW 32Y/M PRESENTED TO ED FROM HOME CC: OVERDOSE SI: OVERDOSE . ESRD ON HD T 99.0 HR 81 RR 22 BP 157/111 SAT 100% ROOM AIR TOX: SALICYLATES <0.8 ACETAMINOPHEN <2 IS: CHARCOAL PO X1 NS IVF BOLUS X1 PATIENT ADMITTED TO TELEMETRY UNIT 09/18/2018 DCP: PATIENT IS FROM HOME
--- NOTE | 2018-09-18 16:05 | NUR ---
NURSE NOTES: Patient is walking in the hallway with sitter.
--- NOTE | 2018-09-18 19:51 | NUR ---
HAND-OFF: Report given to OJ Horan. Patient asleep. Sitter is at the bedside. Endorsed plan of care.
--- NOTE | 2018-09-18 20:21 | NUR ---
NURSE NOTES: recvd report from OJ Maguire. Pt is sleeping. Sitter at bedside. Pt is on room air with no sign of sob or resp distress. IV site is c/d/i. Will continue with plan of care.
--- NOTE | 2018-09-18 22:25 | Initial Psychiatric Evaluation ---
Psychiatry Consultation Psychiatry Consultation Chief Complaint: Overdose History of Present Illness: 32 yo male with hx of depression and and anxiety. the pt with Esrd on hd who was admitted after a sa vivek. the pt pw depressed mood, anhedonia, worthless and hopelessness. the pt stated that he wanted to and didn't have anything to look forward to. the pt recently broke up with his gf. Dr. Go and I had a long conversation about the pt. The plan for him is to go back to his mother. the pt also recently became homeless. the pt was superficial and min verbal. the pt has anxiety and likes to walk around the unit. The pt has no manic/ psychotic sxs. the pt has poor insight. the pt denied using drug/alcohol. Allergies: Uncoded Allergies: FISH (Adverse Reaction, Severe, NAUSEA,VOMITING, 09/24/11) MILK (Adverse Reaction, Severe, NAUSEA,VOMITING, 09/24/11) Past Psychiatric History: depression anxiety no SA not taking psychotropics Medical History: esrd on hd non compliance with hd and meds Substance Abuse History: denied however he has hx of opioid dependence and illicit drugs Social/Family/Abuse/Legal Hx: homeless, recently broke up with gf unemployed Medication History Scheduled Amlodipine Besylate (Norvasc), 5 MG ORAL DAILY, (Reported) Calcium Acetate (Calcium Acetate), 667 MG ORAL THREE TIMES A DAY, (Reported) Cinacalcet* (Sensipar*), 30 MG ORAL DAILY, (Reported) Levetiracetam* (Levetiracetam*), 500 MG ORAL EVERY 12 HOURS, (Reported) Scheduled PRN Hydrocodone Bit/Acetaminophen 7.5-325* ([place] 7.5-325*), 2 TAB ORAL Q6H PRN for For Pain, (Reported) Zolpidem Tartrate* (Ambien*), 10 MG ORAL HS PRN for Insomnia, (Reported) Patient History History Provided By: Patient, Medical Record, PMD Objective Data Height (Feet): 5 Height (Inches): 3.00 Weight (Pounds): 150 Appearance: disheveled Behavior Mannerisms: poor eye contact Affect: constricted Mood: depressed Speech: clear Thought Process: no abnormalities, illogical Suicidal Ideation: present, no plan Assessment/Plan Assessment/Plan: the pt refused meds cont sitter the pt has ro/st Diagnosis [place] I: mdd anxiety Telma Jacobson MD September 18, 2018 22:25
[2018-09-19] VITALS (7 sets, daily range): BP systolic 108–168; BP diastolic 61–85
--- NOTE | 2018-09-19 04:45 | History and Physical Report ---
DATE OF ADMISSION: 09/18/2018 CHIEF COMPLAINT: Narcotic, benzodiazepine, and a hypnotic overdose. HISTORY OF PRESENT ILLNESS: This is a 32-year-old male, who is one of my patients. The patient moved out of my dialysis center about a month ago, not listening to me. He moved out to live with another patient of mine who is also narcotic dependent. I warned the patent that if he is not going to end up in trouble. I had this patient for many, many years, more than 10 years. I warned the patient that he is going to end up in a catastrophe. Indeed, the patient ended up overdosing on narcotic and hypnotics. The patient was brought in by his family for overdose of [place] and Ambien. The versions vary between different three amounts of [place] and Ambien. Currently, the patient is alert and oriented. PAST MEDICAL HISTORY: 1. End-stage renal failure, on dialysis. 2. Status post craniotomy due to intracerebral bleed. 3. Hypertensive cardiovascular disease. MEDICATIONS: I do not have the patient's current list, but we will get the records, which happened to be available to me. REVIEW OF SYSTEMS: HEENT: Hearing and eyesight are normal. ENDOCRINE: No history of diabetes, thyroid, or adrenal problems. RESPIRATORY: Denies shortness of breath, cough, or hemoptysis. CARDIOVASCULAR: He denies chest pain or palpitations. GASTROINTESTINAL: No history of hematochezia, melena, hematemesis, diarrhea, or constipation. GENITOURINARY: He denies dysuria, frequency, urgency, or hematuria. NEUROLOGICAL: Significant for intracerebral bleed due to hypertensive intracerebral bleed. The patient had right hemiparesis. He is really dysarthric. PHYSICAL EXAMINATION: GENERAL: This is a young male, who looks chronically ill. VITAL SIGNS: Blood pressure 145/73; pulse 78, regular; respirations 20; and temperature 97.3 oral. HEENT: The head is normocephalic and atraumatic. Pupils are equal, round, and reactive to light condition consensually. NECK: Supple. Trachea midline. There was no lymphadenopathy or thyromegaly. LUNGS: Clear to auscultation and percussion. HEART: Regular rate and rhythm without rubs, murmurs, or gallops. ABDOMEN: Soft and nontender. Bowel sounds were active. EXTREMITIES: No clubbing, cyanosis, or edema. He has multiple scars from previous multiple vascular surgeries. He has right upper arm AV fistula with thrill and bruit. NEUROLOGIC: He is alert and oriented x4. He is dysarthric. He has mild right hemiparesis. LABORATORY AND ANCILLARY DATA: Hematocrit is 29.5, otherwise CBC within normal limits. Chemistry, BUN 42, creatinine 9.6. Toxicology screening, essentially negative for salicylate, acetaminophen, and serum alcohol. ASSESSMENT: 1. Suicidal attempt, most likely due to depression. 2. End-stage renal failure, on dialysis. 3. Status post craniotomy due to intracerebral bleed. 4. Hypertensive cardiovascular disease. PLAN: 1. Resume all the patient's known medications. 2. Psychiatric evaluation. 3. The patient will be placed on hold and currently, he has a sitter. 4. I will discuss the patient's placement and the necessity to change the patient urgently to his previous home placement with his mother rather than living by himself since this is really unsafe for the patient's future. Bunny Guzman JOB#: [id number] CC: ARIS
[2018-09-19] MEDS ORDERED: Heparin Sod 1000 units/ml 10ml IV PRN (06:00)
--- NOTE | 2018-09-19 07:38 | NUR ---
NURSE NOTES: pt awake alert, no distress. no sob. no c/o pain. call light within reach.bed in lowest position locked. will monitor.
[2018-09-19 07:53] LABS: BASOPHILS % (AUTO) 0.7 % (0.0-2.0); EOSINOPHILS % (AUTO) 3.8 % (0.0-3.0); HEMOGLOBIN 9.7 G/DL (14.2-18.0); LYMPHOCYTES % (AUTO) 20.2 % (20.0-45.0); MEAN CORPUSCULAR VOLUME 92 FL (80-99); NEUTROPHILS % (AUTO) 70.3 % (45.0-75.0); PLATELET COUNT 153 K/UL (150-450); RED BLOOD COUNT 2.94 M/UL (4.70-6.10); RED CELL DISTRIBUTION WIDTH 11.3 % (11.6-14.8); WHITE BLOOD COUNT 8.8 K/UL (4.8-10.8)
[2018-09-19 08:11] LABS: ALANINE AMINOTRANSFERASE 33 U/L (12-78); ALBUMIN 3.5 G/DL (3.4-5.0); ALKALINE PHOSPHATASE 97 U/L (46-116); ANION GAP 13 mmol/L (5-15); ASPARTATE AMINO TRANSFERASE 11 U/L (15-37); BILIRUBIN,TOTAL 0.5 MG/DL (0.2-1.0); BLOOD UREA NITROGEN 56 mg/dL (7-18); CALCIUM 9.3 MG/DL (8.5-10.1); CARBON DIOXIDE 27 MMOL/L (21-32); CHLORIDE 101 MMOL/L (98-107); CREATININE 13.8 MG/DL (0.55-1.30); POTASSIUM 5.1 MMOL/L (3.5-5.1); SODIUM 141 MMOL/L (136-145)
--- NOTE | 2018-09-19 08:16 | NUR ---
NURSE NOTES: paged dr Go re pt wants benadryl for itching. pt receiving hemodialysis now , cannot take po meds at this time.
[2018-09-19] MEDS: Sensipar 30mg Tab ORAL SCH (09:00)
[2018-09-19] MEDS: DiphenhydrAMINE 50mg/ml Inj IVP PRN ×3 (09:38→20:51)
--- NOTE | 2018-09-19 11:00 | NUR ---
Social Service Note GENEVA met with patient for home safety and voiced suicidal ideation. Patient is guarded and required heavy prompting. Patient indicates he recently became homeless due to a recent break up with his girlfriend Siria. Patient states he is extremely depressed about this and no longer wants to live. Patient states he feels hopeless. Patient continues to voice suicidal ideations but doesn't have an active plan. Patient declined to discuss issues pertaining to his hopelessness. Patient states he obtained dialysis at [facility]. GENEVA confirmed compliancy with M-W-F 1230 schedule, . Patient consented for SW to contact his mother Marianela [place] [phone]. Mother states patient is not homeless and if he has been sleeping on the street this is due to by choice. Mother states his recent break up with his girlfriend has been extremely hard. Patient has been with his girlfriend for a little over a year. Mother has allowed girlfriend's dgt to move into her home because of the bad situation at home. Mother didn't want to elaborate the issues but eluded to substance abuse issues. Mother states patient can return to her home and the family will locate other housing options as needed. SW discussed patient's voiced suicidal ideations. Mother states she believes patient will not harm self and his is an act to obtain attention from girlfriend. Mother is also in agreement to changing dialysis unit to previous location if needed. Mother states she will visit patient soon. Pending follow up with psych. Will continue to monitor and assist as needed.
--- NOTE | 2018-09-19 13:48 | NUR ---
NURSE NOTES: paged Dr Go due to pt requests to go home w his mother. pt states he will not harm himself, upon asking by rn awaiting call back from
[2018-09-19] MEDS ORDERED: LORazepam 1mg tab ORAL PRN (15:30)
--- NOTE | 2018-09-19 17:49 | Nephrology Progress Note ---
Assessment/Plan Plan Depression -per Psych. Spoke to pt's mother. She agrees with returning Rogelio to his previoud HD unit under my supervision, where he was better monitored. Subjective Subjective No new c/o Objective Objective Last 24 Hour Vital Signs Date Time Temp Pulse Resp B/P (MAP) Pulse Ox O2 Delivery O2 Flow Rate FiO2 09/19/18 16:13 67 09/19/18 16:00 97.9 74 18 128/80 (96) 96 09/19/18 12:12 97.9 74 18 130/85 (100) 96 09/19/18 11:37 67 09/19/18 10:59 97.9 76 18 132/85 (101) 96 09/19/18 07:58 Room Air 09/19/18 07:54 97.9 80 18 168/85 (112) 96 09/19/18 07:46 73 09/19/18 04:00 97.9 63 18 151/67 (95) 96 09/19/18 04:00 61 09/19/18 00:00 69 09/19/18 00:00 97.8 70 18 144/75 (98) 95 09/18/18 21:00 Room Air 09/18/18 20:00 97.7 70 18 141/73 (95) 99 09/18/18 20:00 60 Intake and Output 09/18/18 09/19/18 19:00 07:00 Intake Total 100 ml 100 ml Output Total 100 ml Balance 0 ml 100 ml Intake Oral 100 ml 100 ml Output Emesis 100 ml # Bowel Movements 1 Laboratory Tests 09/19/18 07:15: White Blood Count 8.8, Red Blood Count 2.94L, Hemoglobin 9.7L, Hematocrit 27.0L , Mean Corpuscular Volume 92, Mean Corpuscular Hemoglobin 33.0H, Mean Corpuscular Hemoglobin Concent 35.9, Red Cell Distribution Width 11.3L, Platelet Count 153, Mean Platelet Volume 6.2L, Neutrophils (%) (Auto) 70.3, Lymphocytes (%) (Auto) 20.2, Monocytes (%) (Auto) 5.0, Eosinophils (%) (Auto) 3.8H, Basophils (%) (Auto) 0.7, Sodium Level 141, Potassium Level 5.1, Chloride Level 101, Carbon Dioxide Level 27, Anion Gap 13, Blood Urea Nitrogen 56H, Creatinine 13.8H, Estimat Glomerular Filtration Rate 4.1, Glucose Level 90, Calcium Level 9.3, Phosphorus Level 8.0H, Total Bilirubin 0.5, Aspartate Amino Transf (AST/SGOT) 11L, Alanine Aminotransferase (ALT/SGPT) 33, Alkaline Phosphatase 97, Total Protein 7.1, Albumin 3.5, Globulin 3.6, Albumin/Globulin Ratio 1.0 Height (Feet): 5 Height (Inches): 3.00 Weight (Pounds): 136 Objective CV RR Lungs CTA Abd SNT. BS + E No CCE. EVA AVF + javierit Thelma Go MD September 19, 2018 17:49
--- NOTE | 2018-09-19 19:11 | NUR ---
HAND-OFF: Report given to KAREEN MCWILLIAMS.
--- NOTE | 2018-09-19 19:12 | NUR ---
NURSE NOTES: Received bedside report from OJ Kruse.Patient stable,sleeping in a bed,A&Ox4,SR on bomb loader,tolerated r/air well,no c/o pain,no respiratory distress noted, lungs clear on auscultation,BS active in allm quadrants,IV asymptomatic,intact on L f/arm 24 G SL,EVA shunt for HD,last dialysis done today 5 L out,,bed secured in a low safety position,call light withia a reach,will continue to monitor and follow POC.Patient has a plan to go home under mom's supervision.
--- NOTE | 2018-09-19 23:30 | Progress Note ---
SUBJECTIVE: The patient is calmer today. Continues to be depressed. Continues to be minimally verbal. He stated that he would like to go to his mother. The patient recently broke up with his girlfriend and in the context of his breakup and recent homelessness. The mother stated that the patient is not having any attempts to hurt himself, however, has attention-seeking behaviors. The patient denied any suicidal thoughts. The patient is calm and cooperative. The patient agreed to stay and cooperative with Dr. Go in order to get medical clearance before he goes to his mother. The patient is having poor insight into his medical issues. MENTAL STATUS EXAMINATION: The patient is alert and oriented times self, place, situation, and date. Mood is depressed and anxious. Affect is constricted. Congruent with mood. Thought process is concrete. Thought content is no suicidal or homicidal ideations. No psychotic symptoms including and delusions. Insight and judgment is improving. ASSESSMENT: 1. Major depressive disorder. 2. Anxiety disorder. PLAN: 1. Start the patient on Lexapro 10 mg in the morning and Remeron 7.5 mg at bedtime and Ativan p.r.n. Discontinue the sitter as he is not suicidal anymore. 2. Provide the patient with supportive therapy and reality orientation. Telma Tilley M.D. DR: TAYO JOB#: [id number] CC:
[2018-09-20] VITALS: BP 165/73
[2018-09-20] MEDS: DiphenhydrAMINE 50mg/ml Inj IVP PRN ×4 (03:38→22:18)
[2018-09-20 04:00] VITALS: BP 104/66
--- NOTE | 2018-09-20 07:09 | NUR ---
HAND-OFF: Report given to OJ Kruse.Patient stable.
[2018-09-20 08:00] VITALS: BP 126/66
[2018-09-20] MEDS: Sensipar 30mg Tab ORAL SCH (08:14)
[2018-09-20 11:28] VITALS: BP 120/72
--- NOTE | 2018-09-20 14:06 | NUR ---
RD ASSESSMENT & RECOMMENDATIONS SEE CARE ACTIVITY FOR COMPLETE ASSESSMENT DAILY ESTIMATED NEEDS: Needs based on ESRD on HD 60.5kg 30-35 kcals/kg 9961-0033 total kcals 1.2-1.8 g protein/kg 73-109 g total protein Fluid per MD, on HD NUTRITION DIAGNOSIS: Increased kcal and pro needs r/t renal dysfunction, ESRD as evidenced by pt on HD, creat 13.8, phos 8.0. CURRENT DIET: Renal PO DIET RECOMMENDATIONS: Maintain RENAL diet ADDITIONAL RECOMMENDATIONS: 1) Provide Renal diet edu when appropriate 2) Obtain a standing weight as able 3) Monitor phos intake 4) Add nepro TID w/ current poor po intake
[2018-09-20 15:38] VITALS: BP 127/72
--- NOTE | 2018-09-20 16:47 | Nephrology Progress Note ---
Assessment/Plan Plan Depression -per Psych. Spoke to pt's mother. She agrees with returning Rogelio to his previous HD unit under my supervision, where he was better monitored. Cannot find the mother, who is pivotal in order to guarantee safe DC. [facility] SW. Subjective Subjective No new c/o Objective Objective Last 24 Hour Vital Signs Date Time Temp Pulse Resp B/P (MAP) Pulse Ox O2 Delivery O2 Flow Rate FiO2 09/20/18 15:38 98.0 75 26 127/72 (90) 98 09/20/18 15:13 66 09/20/18 12:44 63 09/20/18 11:28 98.0 77 26 120/72 (88) 98 09/20/18 08:21 Room Air 09/20/18 08:14 68 126/66 09/20/18 08:00 98.0 68 26 126/66 (86) 98 09/20/18 07:38 57 09/20/18 04:00 98.0 64 26 104/66 (79) 98 09/20/18 03:49 61 09/20/18 00:02 62 09/20/18 00:00 98.4 60 20 165/73 (103) 99 09/19/18 21:00 Room Air 09/19/18 20:04 83 09/19/18 20:00 98.6 76 20 108/61 (77) 98 Intake and Output 09/19/18 09/20/18 19:00 07:00 Intake Total 300 ml 120 ml Balance 300 ml 120 ml Intake Oral 300 ml 120 ml # Voids 3 # Bowel Movements 2 Height (Feet): 5 Height (Inches): 3.00 Weight (Pounds): 136 Objective CV RR Lungs CTA Abd SNT. BS + E No CCE. EVA PASCUALF + Thelma Enamorado MD September 20, 2018 16:47
--- NOTE | 2018-09-20 19:14 | NUR ---
HAND-OFF: Report given to JAMAL MCWILLIAMS.
--- NOTE | 2018-09-20 19:15 | NUR ---
NURSE NOTES: Got report from Uriah MCWILLIAMS. Pt in stable condition. Denies any pain. No s/s of distress or discomfort noted. Pt resting in bed comfortably. Bed in low and locked position, call light within reach, bedside table within reach. Continue to monitor.
[2018-09-20 20:00] VITALS: BP 132/76
[2018-09-21] VITALS: BP 128/79
--- NOTE | 2018-09-21 03:40 | NUR ---
NURSE NOTES: Called [facility] at [phone] to confirm dialysis today 09/21/18. Talked to Jennifer at [facility] to confirm dialysis. Dialysis confirmed for today 09/21/18 per Jennifer.
[2018-09-21 04:20] VITALS: BP 105/61
--- NOTE | 2018-09-21 07:00 | NUR ---
HAND-OFF: Report given to Marium RN. Endorsed plan of care.
--- NOTE | 2018-09-21 07:30 | NUR ---
NURSE NOTES: Received report from Ilsa, Patient is awake, and up eating breakfast. No acute distress/SOB noted. Bed in low position call light within reach. Will continue plan of care. Addendum: 09/21/18 at 0805 by Marium Shay RN Correction. Report received from Gisele
[2018-09-21 08:00] VITALS: BP 119/84
[2018-09-21] MEDS: Sensipar 30mg Tab ORAL SCH ×2 (08:43→09:00)
[2018-09-21] MEDS: DiphenhydrAMINE 50mg/ml Inj IVP PRN ×2 (08:44→20:25)
--- NOTE | 2018-09-21 08:49 | Nephrology Progress Note ---
Assessment/Plan Plan Depression -per Psych. Spoke to pt's mother. She agrees with returning Rogelio to his previous HD unit under my supervision, where he was better monitored. Cannot find the mother, who is pivotal in order to guarantee safe DC. [facility] SW. Spoke to Lenore 08:50 am -hospital SW. Trying to close the loops. Subjective Subjective No new c/o Objective Objective Last 24 Hour Vital Signs Date Time Temp Pulse Resp B/P (MAP) Pulse Ox O2 Delivery O2 Flow Rate FiO2 09/21/18 08:43 69 119/84 09/21/18 08:00 97.8 69 18 119/84 (96) 99 09/21/18 04:20 98.0 62 18 105/61 (76) 98 09/21/18 04:09 56 09/21/18 00:00 64 09/21/18 00:00 97.8 68 18 128/79 (95) 98 09/20/18 21:00 Room Air 09/20/18 20:00 96.9 80 18 132/76 (94) 97 09/20/18 20:00 59 09/20/18 15:38 98.0 75 26 127/72 (90) 98 09/20/18 15:13 66 09/20/18 12:44 63 09/20/18 11:28 98.0 77 26 120/72 (88) 98 Intake and Output 09/20/18 09/21/18 18:59 06:59 Intake Total 300 ml Balance 300 ml Intake Oral 300 ml # Voids 1 Height (Feet): 5 Height (Inches): 3.00 Weight (Pounds): 136 Objective CV RR Lungs CTA Abd SNT. BS + E No CCE. EVA AVF + Thelma Enamorado MD September 21, 2018 08:49
--- NOTE | 2018-09-21 09:00 | NUR ---
NURSE NOTES: After the medication was opened patient refused medication, Amlodipine 5mg, Cinacalcet 30mg, and Escitalopram 10mg was not given. the medication was wasted in [facility].
--- NOTE | 2018-09-21 10:00 | Progress Note ---
DATE: 09/20/2018 SUBJECTIVE: Today, he is not suicidal and he does not care for the girlfriend as of yesterday. The patient is compliant with medications. No behavior issues. He still presents with target symptoms of depressed mood, anhedonia, worthlessness, hopelessness, anxiety, agitation, . The patient is not an imminent danger to self or others. The patient has major depressive disorder versus adjustment disorder. PLAN: The patient will be continued on current medication. Provide the patient with reality orientation and supportive therapy. Telma Tilley M.D. DR: YUDELKA JOB#: [id number] CC:
--- NOTE | 2018-09-21 11:05 | NUR ---
DISCHARGE PENDING STAT HEP PANEL ORDERED FOR OUT PATIENT DIALYSIS
--- NOTE | 2018-09-21 11:40 | NUR ---
Social Service Note GENEVA confirmed with patient's mother Marianela [phone] patient will be returning to her home upon discharge and they would like to change dialysis units to [facility] as this location is closer to her home. GENEVA faxed Amrita at Renal patient information, (p) [phone] (f). Patient's chair time will begin Wednesday at 13:15, then continue at 13:15.
[2018-09-21 12:00] VITALS: BP 105/63
--- NOTE | 2018-09-21 12:17 | NUR ---
CASE MANAGEMENT:REVIEW 09/21/18 SI: OVERDOSE. ESRD. DEPRESSION 97.8 69 18 119/84 99% ON RA IS: REMERON PO QHS LEXAPRO PO QD NORVASC PO QD SENSIPAR PO QD KEPPRA PO Q12 : TELEMETRY STATUS DCP: WILL RETURN HOME PLAN: CHANGE DIALYSIS CENTER TO [facility]
--- NOTE | 2018-09-21 14:55 | Cardiology Report ---
APPROVED REPORT EKG Measurement Heart [id number] Sinus rhythm with premature atrial complexes Otherwise normal ECG
[2018-09-21 16:00] VITALS: BP 109/61
[2018-09-21 16:14] LABS: EOSINOPHILS % (AUTO) 4.8 % (0.0-3.0); HEMATOCRIT 29.1 % (42.0-52.0); HEMOGLOBIN 10.3 G/DL (14.2-18.0); LYMPHOCYTES % (AUTO) 17.9 % (20.0-45.0); MEAN CORPUSCULAR VOLUME 93 FL (80-99); MONOCYTES % (AUTO) 4.7 % (1.0-10.0); NEUTROPHILS % (AUTO) 71.7 % (45.0-75.0); PLATELET COUNT 165 K/UL (150-450); RED BLOOD COUNT 3.12 M/UL (4.70-6.10); RED CELL DISTRIBUTION WIDTH 10.5 % (11.6-14.8); WHITE BLOOD COUNT 7.2 K/UL (4.8-10.8)
[2018-09-21 16:34] LABS: ANION GAP 17 mmol/L (5-15); BLOOD UREA NITROGEN 69 mg/dL (7-18); CALCIUM 9.7 MG/DL (8.5-10.1); CARBON DIOXIDE 20 MMOL/L (21-32); CHLORIDE 101 MMOL/L (98-107); CREATININE 15.9 MG/DL (0.55-1.30); POTASSIUM 5.2 MMOL/L (3.5-5.1); SODIUM 138 MMOL/L (136-145)
[2018-09-21] MEDS ORDERED: Heparin Sod 1000 units/ml 10ml IV ONE (17:00)
--- NOTE | 2018-09-21 19:15 | NUR ---
NURSE NOTES: Received pt. and report from OJ Causey. Observe pt. ambulating steady around his room. Pt. is A/O x4. IV site intact, asymptomatic and patent. budget engineer in placed. Bed is in the lowest position and locked. Call light within reach. No signs/symptoms of acute distress noted at this time. Will continue plan of care.
--- NOTE | 2018-09-21 19:29 | NUR ---
HAND-OFF: Report given to Magnolia/RN, Patient awake and alert, in stable condition. Endorsed plan of care.
[2018-09-21 20:00] VITALS: BP 130/86
[2018-09-22] VITALS: BP 118/66
--- NOTE | 2018-09-22 00:25 | NUR ---
NURSE NOTES: Observed pt. asleep in bed. Bed is in the lowest position and locked. Call light within reach. Will continue to monitor pt.
--- NOTE | 2018-09-22 00:30 | Progress Note ---
DATE: 09/21/2018 PSYCHIATRIC PROGRESS NOTE SUBJECTIVE: The patient is doing better today. Continues to be depressed and still focused on the breakup with his girlfriend. The patient has not been taking the Lexapro. However, he is taking his Remeron. The patient denies suicidal or homicidal ideation. MENTAL STATUS EXAMINATION: The patient is alert and oriented x4. Mood is dysphoric. Affect is constricted. Congruent with mood. Thought process is concrete. Thought content, no suicidal or homicidal ideations. Insight and judgment is improving. ASSESSMENT: Major depressive disorder with anxiety disorder. PLAN: 1. We will continue the Lexapro. Educated him to take the Lexapro. 2. Continue the Remeron. 3. The patient is not an imminent danger to self or others. 4. to his mother's comfort. Telma Tilley M.D. DR: TAYO JOB#: [id number] CC:
[2018-09-22 04:00] VITALS: BP 122/73
--- NOTE | 2018-09-22 07:15 | NUR ---
NURSE NOTES: Received report from Magnolia/RN, Patient is asleep, No acute distress at this time. Bed in low position and locked. Call light within reach. Will continue plan of care.
--- NOTE | 2018-09-22 07:33 | NUR ---
HAND-OFF: Report given to OJ Causey.
[2018-09-22 08:00] VITALS: BP 107/75
[2018-09-22] MEDS: DiphenhydrAMINE 50mg/ml Inj IVP PRN (08:14)
[2018-09-22] MEDS: Sensipar 30mg Tab ORAL SCH (09:00)
[2018-09-22 12:00] VITALS: BP 117/74
--- NOTE | 2018-09-22 13:09 | Nephrology Progress Note ---
Assessment/Plan Plan Depression -per Psych. Spoke to pt's mother. She agrees with returning Rogelio to his previous HD unit under my supervision, where he was better monitored. Cannot find the mother, who is pivotal in order to guarantee safe DC. [facility] HD SW. Spoke to Lenore 08:50 am -hospital SW. Trying to close the loops. DC home Subjective Subjective No new c/o Objective Objective Last 24 Hour Vital Signs Date Time Temp Pulse Resp B/P (MAP) Pulse Ox O2 Delivery O2 Flow Rate FiO2 09/22/18 12:00 97.7 85 20 117/74 (88) 97 09/22/18 09:00 Room Air 09/22/18 09:00 75 107/75 09/22/18 08:00 97.7 75 18 107/75 (86) 99 09/22/18 04:00 68 09/22/18 04:00 97.9 61 17 122/73 (89) 98 09/22/18 00:00 97.4 68 18 118/66 (83) 97 09/22/18 00:00 83 09/21/18 21:00 Room Air 09/21/18 20:00 97.8 67 19 130/86 (101) 97 09/21/18 20:00 80 09/21/18 16:00 79 09/21/18 16:00 97.7 65 18 109/61 (77) 98 Intake and Output 09/21/18 09/22/18 18:59 06:59 Intake Total 120 ml Balance 120 ml Intake Oral 120 ml # Voids 1 # Bowel Movements 1 Laboratory Tests 09/21/18 15:40: White Blood Count 7.2, Red Blood Count 3.12L, Hemoglobin 10.3L, Hematocrit 29.1L , Mean Corpuscular Volume 93, Mean Corpuscular Hemoglobin 32.8H, Mean Corpuscular Hemoglobin Concent 35.3, Red Cell Distribution Width 10.5L, Platelet Count 165, Mean Platelet Volume 6.2L, Neutrophils (%) (Auto) 71.7, Lymphocytes (%) (Auto) 17.9L, Monocytes (%) (Auto) 4.7, Eosinophils (%) (Auto) 4.8H, Basophils (%) (Auto) 1.0, Sodium Level 138, Potassium Level 5.2H, Chloride Level 101, Carbon Dioxide Level 20L, Anion Gap 17H, Blood Urea Nitrogen 69H, Creatinine 15.9H, Estimat Glomerular Filtration Rate 3.5, Glucose Level 139H, Calcium Level 9.7 Height (Feet): 5 Height (Inches): 3.00 Weight (Pounds): 131 Objective CV RR Lungs CTA Abd SNT. BS + E No CCE. EVA AVF + bruit Thelma Go MD September 22, 2018 13:09
--- NOTE | 2018-09-22 15:23 | NUR ---
NURSE NOTES: Discharge instruction given, Patient verbalized understanding. Heart monitor and IV removed, No bleeding, No acute distress noted. Escorted to downstairs, Patient left via private vehicle.
--- NOTE | 2018-09-22 23:15 | Progress Note ---
DATE: 09/22/2018 SUBJECTIVE: The patient is doing better. Continues to be depressed, has anxiety, however much improved. No suicidal or homicidal ideation. The patient would like to go back to his mother. MENTAL STATUS EXAMINATION: The patient is alert and oriented times self, place, and situation he is in. Mood is anxious. Affect is constricted. Congruent with mood. Thought process is linear. Thought content, no suicidal or homicidal ideations. ASSESSMENT: 1. Major depressive disorder. 2. Anxiety disorder. PLAN: The patient was discharged. We will follow up on with ammonium hydroxide operator. The patient is not an imminent danger to self or others. Telma Tilley M.D. DR: TASHA JOB#: [id number] CC:
--- NOTE | 2018-09-23 13:05 | Discharge Summary ---
Discharge Summary Discharge Summary _ DATE OF ADMISSION: 09/18/2018 DATE OF DISCHARGE: 09/22/2018 DISCHARGED BY: Dr. Thelma Go CONSULTANTS: Dr. Telma Tilley BRIEF HOSPITAL COURSE: Patient is a 32-year-old male, a known office patient. Patient moved out to live with another patient who is narcotic dependent. He was brought to ED by family due to overdose. Apparently patient took multiple tablets of [place] and Ambien. He stated he was trying to hurt himself. He has history of end-stage renal disease on hemodialysis every Wednesday, Wednesday and Wednesday. On evaluation at the ED, blood work showed stable hemoglobin and hematocrit. There was no leukocytosis. BUN was 42, creatinine 9.6. LFTs were normal. Troponin was negative. Salicylate, acetaminophen and serum alcohol were normal. He had an EKG that showed normal sinus rhythm with no acute changes. He was given charcoal. Patient was unable to be cleared for outpatient psychiatric evaluation as he is a dialysis patient. He required admission and psychiatric evaluation. Patient was then admitted to telemetry due to drug overdose. Psychiatric evaluation was done. Patient stated that he wanted to and did not have anything to look forward to. Patient recently broke up with his girlfriend. There was no manic or psychotic symptoms noted. Patient had poor insight and denied using drugs/alcohol. He was provided a sitter. Patient was depressed. Patient agreed to stay and be go back to previous hemodialysis unit to be able to be supervised monitored. He was started on Lexapro 10 mg every morning and Remeron 7.5 mg nightly. He was provided supportive therapy and reality orientation. The patient was not an imminent danger to self or to others. Patient was cleared for discharge home. Patient to go to [facility] for hemodialysis sessions. FINAL DIAGNOSES: Suicidal attempt, most likely due to depression End-stage renal failure, on dialysis Status post craniotomy due to intracranial bleed Hypertensive cardiovascular disease Major depressive disorder Anxiety disorder DISPOSITION: Patient was discharged home. DISCHARGE MEDICATIONS: Refer to Discharge Medication List. DISCHARGE INSTRUCTIONS: Follow-up in a week. I have been assigned to complete a discharge summary on this account, I was not involved with the patient's management. Melisa Mcdermott NP September 23, 2018 13:05
== END 2018-09-22 15:20 | disposition home or self-care (01) | DRG 917 ==
LOC: EMR 00:58 → 2E 01:10 → EDBEDREQSVC 01:30 → EDBEDREQ 01:38
PROC: 5A1D70Z Performance of Urinary Filtration, Intermittent, Less than 6 Hours Per Day (ICD-10-PCS; principal; 2018-09-19)
DX: T42.4X2A Poisoning by benzodiazepines, intentional self-harm, initial encounter (principal); N18.6 End stage renal disease; F11.20 Opioid dependence, uncomplicated; I13.11 Hypertensive heart and chronic kidney disease without heart failure, with stage 5 chronic kidney disease, or end stage renal disease; T42.6X2A Poisoning by other antiepileptic and sedative-hypnotic drugs, intentional self-harm, initial encounter; T40.2X2A Poisoning by other opioids, intentional self-harm, initial encounter; F32.9 Major depressive disorder, single episode, unspecified; F41.9 Anxiety disorder, unspecified
CPT/HCPCS: 36415; 80048; 80053; 80299; 80329; 82550; 82553; 84100; 84484; 85025; 86706; 86707; 86803; 87081; 93005; 99285

== ENCOUNTER 2019-11-02 14:51 | Inpatient (IN) | payer MEDICARE, MEDICAID ==
[~2019-11-02] VITALS: Ht 162.6 cm; Wt 62.1 kg
--- NOTE | 2019-11-02 15:37 | Emergency Room Report ---
History of Present Illness General Chief Complaint: General Complaint Source: Patient Present Illness HPI Disclaimer: Please note that this report is being documented using DRAGON technology. This can lead to erroneous entry secondary to incorrect interpretation by the dictating instrument. HPI: 34-year-old male history of ESRD on hemodialysis MWF presents for evaluation of possible sepsis and need for dialysis from PMD. The patient was seen at outpatient clinic today after missing dialysis for 3 sessions. He states he was out of town last dialysis was 1 week ago. He denies chest pain, pressure, shortness of breath, cough, fever, chills, abdominal pain, vomiting. He reports 3 days of watery diarrhea. Patient is an uric, denies pelvic pain. Denies rash or skin breakdown. He states he currently does not have a multigrapher. Seen earlier today at the [facility] and sent for medical evaluation. 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 COVID-19 Screening: Negative COVID-19 COVID-19 Testing Source: 07/2019 Nursing Documentation-[facility] Past Medical History: No History, Except For Hx Cardiac Problems: Yes Hx Hypertension: Yes Hx Pacemaker: No Hx Asthma: No Hx COPD: No Hx Diabetes: No Hx Cancer: No Hx Gastrointestinal Problems: No Hx Dialysis: Yes - Wed Hx Neurological Problems: No Hx Cerebrovascular Accident: Yes - Intracerebral bleeding Hx Seizures: No Review of Systems All Other Systems: negative except mentioned in HPI Physical Exam Vital Signs Date Time Temp Pulse Resp B/P (MAP) Pulse Ox O2 Delivery O2 Flow Rate FiO2 11/02/19 14:59 98.1 62 17 152/82 (105) 100 Room Air General: Awake and alert, no acute distress HEENT: NC/AT. EOMI. Cardiovascular: RRR. S1 and S2 normal. Fistula in the right upper arm with palpable thrill Resp: Normal work of breathing. No cough, wheezing or crackles appreciated Abdomen: Abdomen is soft, nondistended. Nontender Skin: Intact. No abrasions, laceration or rash over the exposed skin MSK: Normal tone and bulk. Moving all extremities. No obvious deformity. Neuro: Awake and alert. Mentating appropriately. Procedures Critical Care Time Critical Care Time Total critical care time: Approximately 45 minutes Due to a high probability of clinically significant, life threatening deterioration, the patient required the highest level of preparedness to intervene emergently and I personally spent this critical care time directly and personally managing the patient. This critical care time included obtaining a history, examining the patient, pulse oximetry, ordering and reviewing studies , ordering treatments, evaluating response to treatment and updating management plan as needed, frequent reassessment and discussion with other providers as well as arranging for ultimate disposition. This critical to care time was performed to assess and manage the high probability of life-threatening deterioration that could result in multiorgan failure. This critical care time is separate from the separately billable procedures and treating other patients. Medical Decision Making Diagnostic Impression: Primary Impression: ESRD (end stage renal disease) on dialysis Additional Impressions: Hyperkalemia Pancreatitis ER Course There is a 34-year-old male with history of ESRD having missed dialysis for 1 week. Note from [facility] concern for sepsis but unclear why aside from the patient's diarrhea for the past 3 days. He arrives with vital signs in normal limits and no fever. He currently has no complaints. Initial EKG shows slight peaking of T waves. Concern for electrolyte abnormality, fluid overload and need for dialysis. Will obtain broad labs and arrange for admission. We will also draw cultures, lactate. 1750: Labs show anemia with hemoglobin of 9.5 as well as a critically elevated potassium. Creatinine and BNP also elevated consistent with ESRD and fluid overload status. The patient is in no respiratory distress. Patient received calcium based on his EKG on initial arrival but also be treated with IV insulin and dextrose as well as Kayexalate. Lipase returned elevated but the patient's belly remained soft. He has been having diarrhea for the past 3 days. His multigrapher, Dr. Knapp, has accepted the patient. Will arrange for hemodialysis. Laboratory Tests Test 11/02/19 15:25 11/02/19 16:00 11/02/19 16:15 White Blood Count 6.1 K/UL (4.8-10.8) Red Blood Count 2.99 M/UL (4.70-6.10) L Hemoglobin 9.5 G/DL (14.2-18.0) L Hematocrit 30.4 % (42.0-52.0) L Mean Corpuscular Volume 102 FL (80-99) H Mean Corpuscular Hemoglobin 31.7 PG (27.0-31.0) H Mean Corpuscular Hemoglobin Concent 31.2 G/DL (32.0-36.0) L Red Cell Distribution Width 12.5 % (11.6-14.8) Platelet Count 99 K/UL (150-450) L Mean Platelet Volume 8.7 FL (6.5-10.1) Neutrophils (%) (Auto) 75.5 % (45.0-75.0) H Lymphocytes (%) (Auto) 17.8 % (20.0-45.0) L Monocytes (%) (Auto) 4.4 % (1.0-10.0) Eosinophils (%) (Auto) 1.7 % (0.0-3.0) Basophils (%) (Auto) 0.7 % (0.0-2.0) Prothrombin Time 11.5 SEC (9.30-11.50) Prothrombin Time INR 1.0 (0.9-1.1) Activated Partial Thromboplast Time 29 SEC (23-33) Lactic Acid Level 0.40 mmol/L (0.4-2.0) Troponin I 0.004 ng/mL (0.000-0.056) Lipase 936 U/L (73-393) H Sodium Level 140 MMOL/L (136-145) Potassium Level 7.6 MMOL/L (3.5-5.1) *H Chloride Level 106 MMOL/L (98-107) Carbon Dioxide Level 18 MMOL/L (21-32) L Anion Gap 17 mmol/L (5-15) H Blood Urea Nitrogen 108 mg/dL (7-18) H Creatinine 22.3 MG/DL (0.55-1.30) H Estimated Glomerular Filtration Rate 2.4 mL/min (>60) Glucose Level 101 MG/DL (74-106) Calcium Level 9.1 MG/DL (8.5-10.1) Total Bilirubin 0.4 MG/DL (0.2-1.0) Aspartate Amino Transferase (AST) 14 U/L (15-37) L Alanine Aminotransferase (ALT) 37 U/L (12-78) Alkaline Phosphatase 116 U/L (46-116) Total Creatine Kinase 83 U/L (26-308) Creatine Kinase MB 1.2 NG/ML (0.0-3.6) Creatine Kinase MB Relative Index 1.4 Pro-B-Type Natriuretic Peptide 33973 pg/mL (0-125) H Total Protein 6.8 G/DL (6.4-8.2) Albumin 3.8 G/DL (3.4-5.0) Globulin 3.0 g/dL Albumin/Globulin Ratio 1.3 (1.0-2.7) EKG Diagnostic Results EKG Time: 15:26 Rate: normal Rhythm: NSR ST Segments: no acute changes Other Impression Sinus rhythm, normal axis, normal intervals. Slightly peaked T waves diffusely. No ST segment changes. Rhythm Strip Diag. Results Rhythm Strip Time: 15:26 EP Interpretation: yes Rate: 60s Rhythm: NSR, no PVC's, no ectopy Last Vital Signs Date Time Temp Pulse Resp B/P (MAP) Pulse Ox O2 Delivery O2 Flow Rate FiO2 11/02/19 14:59 98.1 62 17 152/82 (105) 100 Room Air Disposition: ADMITTED INPATIENT Condition: Serious Scripts No Active Prescriptions or Reported Meds Referrals: NOT CHOSEN IPA/,REFERRING (PCP) Leonardo Rashid MD Nov 02, 2019 15:37
[2019-11-02 15:44] VITALS: BP 184/68
[2019-11-02] MEDS ORDERED: Calcium Gluconate 1gm/10ml vial IVP ONE (15:45)
[2019-11-02 16:03] LABS: HEMATOCRIT 30.4 % (42.0-52.0); HEMOGLOBIN 9.5 G/DL (14.2-18.0); MEAN CORPUSCULAR VOLUME 102 FL (80-99); PLATELET COUNT 99 K/UL (150-450); RED BLOOD COUNT 2.99 M/UL (4.70-6.10); RED CELL DISTRIBUTION WIDTH 12.5 % (11.6-14.8); WHITE BLOOD COUNT 6.1 K/UL (4.8-10.8)
[2019-11-02 16:04] LABS: BASOPHILS % (AUTO) 0.7 % (0.0-2.0); EOSINOPHILS % (AUTO) 1.7 % (0.0-3.0); LYMPHOCYTES % (AUTO) 17.8 % (20.0-45.0); MONOCYTES % (AUTO) 4.4 % (1.0-10.0); NEUTROPHILS % (AUTO) 75.5 % (45.0-75.0)
--- NOTE | 2019-11-02 16:14 | Diagnostic Imaging Report ---
Procedure: XRAY Chest 1v Reason for study: Reason For Exam: SOB Comparison films: 07/02/2015. FINDINGS: Left subclavian and vascular stents again identified. There are new right axillary vascular stents noted. Vascularity is normal. The lung lopez are clear bilaterally. Cardiac and mediastinal silhouette are within normal limits. CP angles are sharp. The bony thorax appear unremarkable. IMPRESSION: NO ACUTE CARDIOPULMONARY DISEASE.
[2019-11-02 16:57] VITALS: BP 186/77
[2019-11-02 17:01] LABS: ALANINE AMINOTRANSFERASE 37 U/L (12-78); ALBUMIN 3.8 G/DL (3.4-5.0); ALBUMIN/GLOBULIN RATIO 1.3 (1.0-2.7); ALKALINE PHOSPHATASE 116 U/L (46-116); ANION GAP 17 mmol/L (5-15); ASPARTATE AMINO TRANSFERASE 14 U/L (15-37); BILIRUBIN,TOTAL 0.4 MG/DL (0.2-1.0); BLOOD UREA NITROGEN 108 mg/dL (7-18); CALCIUM 9.1 MG/DL (8.5-10.1); CARBON DIOXIDE 18 MMOL/L (21-32); CHLORIDE 106 MMOL/L (98-107); CKMB 1.2 NG/ML (0.0-3.6); CREATINE KINASE 83 U/L (26-308); CREATININE 22.3 MG/DL (0.55-1.30); SODIUM 140 MMOL/L (136-145)
[2019-11-02 17:05] LABS: POTASSIUM 7.6 MMOL/L (3.5-5.1)
[2019-11-02] MEDS ORDERED: Insulin Human Regular 100units/ml 3ml IV ONE (17:15)
[2019-11-02] MEDS ORDERED: Sodium Polystyrene Sulfonate 15gm Powder ORAL ONE (17:15)
[2019-11-02 19:01] VITALS: BP 128/74
[2019-11-02 20:00] VITALS: BP 117/49
[2019-11-02] MEDS: D5 1/2NS 1,000 ML IV SCH (21:33)
[2019-11-03] VITALS: BP 118/50
[2019-11-03 04:00] VITALS: BP 149/54
[2019-11-03 06:15] LABS: BASOPHILS % (AUTO) 0.7 % (0.0-2.0); EOSINOPHILS % (AUTO) 1.5 % (0.0-3.0); HEMATOCRIT 28.5 % (42.0-52.0); LYMPHOCYTES % (AUTO) 16.5 % (20.0-45.0); MEAN CORPUSCULAR VOLUME 103 FL (80-99); MONOCYTES % (AUTO) 5.5 % (1.0-10.0); NEUTROPHILS % (AUTO) 75.8 % (45.0-75.0); PLATELET COUNT 102 K/UL (150-450); RED BLOOD COUNT 2.78 M/UL (4.70-6.10); RED CELL DISTRIBUTION WIDTH 12.7 % (11.6-14.8); WHITE BLOOD COUNT 5.8 K/UL (4.8-10.8)
[2019-11-03 06:34] LABS: ALANINE AMINOTRANSFERASE 31 U/L (12-78); ALBUMIN 3.2 G/DL (3.4-5.0); ALBUMIN/GLOBULIN RATIO 1.1 (1.0-2.7); ALKALINE PHOSPHATASE 99 U/L (46-116); ANION GAP 8 mmol/L (5-15); ASPARTATE AMINO TRANSFERASE 14 U/L (15-37); BILIRUBIN,TOTAL 0.3 MG/DL (0.2-1.0); BLOOD UREA NITROGEN 44 mg/dL (7-18); CALCIUM 8.7 MG/DL (8.5-10.1); CARBON DIOXIDE 32 MMOL/L (21-32); CHLORIDE 105 MMOL/L (98-107); CREATININE 12.9 MG/DL (0.55-1.30); SODIUM 145 MMOL/L (136-145)
[2019-11-03 08:00] VITALS: BP 154/81
[2019-11-03 12:00] VITALS: BP 154/77
[2019-11-03] MEDS ORDERED: Vancomycin 1.5gm/NS Premix q24h IVPB SCH (14:00)
[2019-11-03 16:00] VITALS: BP 146/77
--- NOTE | 2019-11-03 16:30 | Consultation ---
DATE OF CONSULTATION: 11/03/2019 INFECTIOUS DISEASES CONSULTATION CONSULTING PHYSICIAN: Conor Mallory MD. REFERRING PHYSICIAN: Thelma Go MD. REASON FOR CONSULTATION: Possible sepsis. HISTORY OF PRESENTING ILLNESS: This is a 34-year-old gentleman with history of hypertension, craniotomy secondary to intracranial bleed, renal failure on dialysis, who came in after missing dialysis for 3 sessions. He was out of town. He also had some diarrhea. There was a concern for sepsis and an Infectious Diseases consultation has been obtained for antibiotics. PAST MEDICAL HISTORY: 1. History of hypertension. 2. Renal failure, on dialysis. 3. Intracranial bleed, status post craniotomy. SOCIAL HISTORY: He does not smoke, drink, or use drugs. FAMILY HISTORY: Noncontributory. REVIEW OF SYSTEMS: RESPIRATORY: No fever, chills, cough, shortness of breath, or chest pain. CARDIAC: No chest pain. No palpitation. No dizziness. No syncope. GASTROINTESTINAL: No nausea. No vomiting. No abdominal pain or diarrhea. MEDICATIONS: As an inpatient, he is on Keppra, Renvela, and Tylenol. ALLERGIES: 1. Fish. 2. Milk. PHYSICAL EXAMINATION: VITAL SIGNS: Temperature of 100.8, T-max of 100.8, pulse of 73, respiratory rate 19, blood pressure 154/81, O2 saturation of 96% on room air. HEENT: Pupils equally reactive to light and accommodation. Mouth appears clean without thrush. NECK: Supple. No adenopathy. No JVD. CARDIOVASCULAR: Regular rate and rhythm. No murmurs. LUNGS: Clear to auscultation bilaterally. No crackles. No wheezes. ABDOMEN: Soft, nontender. No organomegaly. EXTREMITIES: No cyanosis. No clubbing. No edema. LABORATORY AND DIAGNOSTIC DATA: Blood cultures are pending. White count 5.8, hemoglobin 9, hematocrit 28.5, MCV 103, platelet count of 102,000 with neutrophils of 75%. Sodium 145, potassium 4, chloride 105, bicarb 32, BUN 44, creatinine 12.9, glucose 100, calcium 8.7. Total bilirubin 0.3, AST 14, ALT 31, alkaline phosphatase 99, total protein 6.2, albumin 3.2. Lipase of 936. Blood cultures are pending. Chest x-ray is showing no acute disease. ASSESSMENT: This is a 34-year-old gentleman with history of hypertension, renal failure, on dialysis, intracranial bleeding, status post craniotomy, who comes in with: 1. Fever. We would like to rule out sepsis as a possibility. 2. We would also like to rule out COVID-19 pneumonia as a possibility. 3. Renal failure, on dialysis. 4. Hypertension. 5. Intracranial bleed, status post craniotomy. PLAN: 1. We will follow up on blood cultures. 2. We will order COVID-19 testing[address] will [address] the patient on isolation. 4. We will start the patient on IV vancomycin and cefepime. 5. We will follow up cultures and adjust antibiotics accordingly. I would like to thank, Dr. Go, for this consultation. Conor Mallory M.D. DR: Deanne JOB#: [id number] CC: Thelma Go MD; Fax#: [phone]
--- NOTE | 2019-11-03 18:15 | History and Physical Report ---
DATE OF ADMISSION: 11/02/2019 CHIEF COMPLAINT: Weakness. HISTORY OF PRESENT ILLNESS: This is a 34-year-old male who used to be my dialysis patient up until about a year ago when he disappeared due to association with another one of my patients. Both of these patients became addicted to medical narcotics. Both of the patients moved to an apartment in the [place] and disappeared from my care about a year ago. Ever since then, did not hear from this patient. The patient is telling me that he moved back to live in [place] and did not receive dialysis for the last week. Indeed, his potassium was 7.8 upon presentation to the emergency department. The patient already received emergent dialysis yesterday. This morning, the patient had elevated temperature and he was seen already by Infectious Disease. PAST MEDICAL HISTORY: 1. End-stage renal failure, on dialysis. 2. History of noncompliance. 3. History of anoxic encephalopathy, status post intracerebral bleed due to hypertensive cardiovascular disease. 4. Seizure disorder. 5. Status post craniotomy. 6. Problematic hemodialysis access. MEDICATIONS: The patient did not bring his medication list and I will try to reconstruct his full medications from records that I am going to pull from [place] and from my office. I tried to reconstruct some of his medications out of my memory. ALLERGIES: No known allergies. FAMILY HISTORY: Unremarkable. SOCIAL HISTORY: The patient has problematic social support. REVIEW OF SYSTEMS: HEENT: Hearing and eyesight are normal. ENDOCRINE: No history of diabetes. RESPIRATORY: Denies shortness of breath, cough, or hemoptysis. CARDIAC: Denies chest pain or palpitations. NEUROLOGIC: Please refer to past medical history. The patient is disabled due to his neurological problems. PHYSICAL EXAMINATION: GENERAL: This is a relatively young, but chronically disabled and chronically ill male who is in no acute distress. VITAL SIGNS: Blood pressure 154/81, mean arterial pressure 105, respirations 19, temperature 100.8. HEENT: The head is normocephalic and atraumatic. Pupils are equal, round, reactive to light. NECK: Supple. Trachea midline. There was no lymphadenopathy or thyromegaly. LUNGS: Clear to auscultation and percussion. HEART: Regular rate and rhythm. He has a grade 2 systolic ejection murmur. ABDOMEN: Soft and nontender. Bowel sounds were active. EXTREMITIES: No clubbing, cyanosis, or edema. He has right upper arm AV fistula. He has multiple scars on his left arm from previous AV fistulas. NEUROLOGIC: He is alert. He is dysarthric. He has some right hemiparesis. LABORATORY AND ANCILLARY DATA: Yesterday's potassium was 7.6, sodium 140, BUN 108, creatinine 22.3. Today sodium 145, potassium 4, BUN 44, creatinine 12.9. Hematocrit 28.5, otherwise CBC within normal limits. Chest x-ray showed left subclavian vascular stents noted. Otherwise, no acute cardiopulmonary disease. ASSESSMENT: 1. Uremia due to missing dialysis. 2. End-stage renal failure, on dialysis. 3. History of noncompliance. 4. History of anoxic encephalopathy, status post intracerebral bleed due to hypertensive cardiovascular disease. 5. Seizure disorder. 6. Status post craniotomy. 7. Problematic hemodialysis access. PLAN: 1. Reconstruct the patient's known medications. 2. Seizure precaution. 3. ID consult to rule out COVID-19. 4. Intensive hemodialysis to be resumed. 5. Referred to outpatient dialysis. Thelma Go M.D. DR: NILO JOB#: [id number] CC: ARIS
[2019-11-03] MEDS: D5 1/2NS 1,000 ML IV SCH (18:48)
[2019-11-03] MEDS: Cefepime HCl 1 GM in D5W 55 ML IVPB SCH (18:49)
[2019-11-03 20:00] VITALS: BP 155/78
[2019-11-04] VITALS: BP 136/73
[2019-11-04 04:00] VITALS: BP 121/70
[2019-11-04 08:00] VITALS: BP 120/73
[2019-11-04] MEDS: DiphenhydrAMINE 50mg/ml Inj IVP PRN ×2 (09:30→16:57)
[2019-11-04 11:34] VITALS: BP 144/77
[2019-11-04] MEDS: D5 1/2NS 1,000 ML IV SCH (13:24)
--- NOTE | 2019-11-04 14:32 | Nephrology Progress Note ---
Assessment/Plan Problem List: (1) H/O craniotomy (2) Uremia (3) Fever (4) End stage renal disease (5) Hyperkalemia Plan HD 11/03, comtinue empiric atb Subjective Constitutional: Reports: no symptoms HEENT: Reports: no symptoms Genitourinary: Reports: no symptoms Neurologic/Psychiatric: Reports: no symptoms Objective Objective Last 24 Hour Vital Signs Date Time Temp Pulse Resp B/P (MAP) Pulse Ox O2 Delivery O2 Flow Rate FiO2 11/04/19 12:00 64 11/04/19 11:34 97.1 94 18 144/77 (99) 98 11/04/19 09:00 Room Air 11/04/19 08:00 81 11/04/19 08:00 97.9 86 18 120/73 (89) 98 11/04/19 04:00 98.8 65 18 121/70 (87) 98 11/04/19 04:00 86 11/04/19 00:00 99.0 79 22 136/73 (94) 98 11/04/19 00:00 65 11/04/19 00:00 Room Air 11/03/19 21:00 Room Air 11/03/19 20:00 64 11/03/19 20:00 100.3 67 20 155/78 (103) 100 11/03/19 16:00 98.6 56 18 146/77 (100) 100 11/03/19 16:00 60 Intake and Output 11/03/19 11/04/19 19:00 07:00 Intake Total 240 ml 668 ml Balance 240 ml 668 ml Intake Oral 240 ml IV Total 550 ml Other 118 ml # Bowel Movements 1 Laboratory Tests 11/04/19 06:15: Random Vancomycin Level 33.4 Height (Feet): 5 Height (Inches): 4.00 Weight (Pounds): 137 General Appearance: no apparent distress EENT: normal ENT inspection Neck: normal alignment Cardiovascular: normal rate Respiratory/Chest: lungs clear Abdomen: soft Extremities: non-tender, no edema Neurologic: business broker II-XII grossly normal Hakan Page MD Nov 04, 2019 14:32
[2019-11-04 16:00] VITALS: BP 153/69
[2019-11-04] MEDS: Cefepime HCl 1 GM in D5W 55 ML IVPB SCH (18:00)
[2019-11-04 20:00] VITALS: BP 132/40
[2019-11-05] VITALS: BP 149/69
[2019-11-05 04:00] VITALS: BP 113/67
[2019-11-05 08:00] VITALS: BP 125/91
[2019-11-05] MEDS: D5 1/2NS 1,000 ML IV SCH (10:00)
[2019-11-05 11:45] VITALS: BP 138/74
[2019-11-05] MEDS ORDERED: RENVELA800 MG ORAL (12:56)
[2019-11-05] MEDS ORDERED: KEPPRA500 MG ORAL (12:56)
--- NOTE | 2019-11-06 08:15 | Discharge Summary ---
DATE OF ADMISSION: 11/02/2019 DATE OF DISCHARGE: 11/05/2019 PERTINENT HISTORY: This is a 34-year-old man who has been missing dialysis treatment and presented with azotemia and the potassium is 7.8 and low-grade fever. PERTINENT PHYSICAL EXAMINATION: See Dr. Knapp's dictation. HEAD, EYES, EARS, NOSE, AND THROAT: Unremarkable. LUNGS: Clear. HEART: Regular rhythm. There is 2/6 systolic ejection murmur. ABDOMEN: Soft and nontender. EXTREMITIES: No edema. There is a large right upper arm AV fistula and scars on his left arm from previous AV fistula. No evidence of cellulitis. NEUROLOGIC: He is alert. He is . There is some right-sided weakness. COURSE IN THE HOSPITAL: The patient had an emergent dialysis for hyperkalemia and azotemia. He was cultured and put on broad-spectrum antibiotics. He had negative cultures. The patient stabilized, reached his baseline status. He was maintained on Keppra because he had a history of seizure disorder. He felt well. On the day of discharge, he was alert and responsive. Lungs clear. Heart, rate and rhythm. Abdomen was soft. Extremities, no edema. He had no evidence of cellulitis over the fistula. His cultures were negative. He was discharged in stable condition. FINAL DIAGNOSES: 1. End-stage renal disease. 2. Hyperkalemia. 3. History of noncompliance to dialysis. 4. History of anoxic encephalopathy. 5. Intracerebral bleed. 6. Hypertensive cardiovascular disease. 7. Seizure disorder. 8. Status post craniotomy. DISCHARGE DISPOSITION: Home on a renal diet. Sevelamer 800 mg 3 times a day and Keppra 750 mg twice a day. Follow up by Dr. Knapp in the dialysis unit. Hakan Page M.D. DR: STEPHENIE JOB#: [id number] CC:
== END 2019-11-05 13:48 | disposition home or self-care (01) | DRG 682 ==
LOC: EMR 15:12 → 2E 15:40 → EDBEDREQ 17:44
PROC: 5A1D70Z Performance of Urinary Filtration, Intermittent, Less than 6 Hours Per Day (ICD-10-PCS; principal; 2019-11-04)
DX: I12.0 Hypertensive chronic kidney disease with stage 5 chronic kidney disease or end stage renal disease (principal); N18.6 End stage renal disease; E87.5 Hyperkalemia; G40.909 Epilepsy, unspecified, not intractable, without status epilepticus; Z91.19 Patient's noncompliance with other medical treatment and regimen; Z91.15 Patient's noncompliance with renal dialysis; Z99.2 Dependence on renal dialysis; I69.10 Unspecified sequelae of nontraumatic intracerebral hemorrhage; Z20.828 Contact with and (suspected) exposure to other viral communicable diseases; R50.9 Fever, unspecified
CPT/HCPCS: 36415; 71045; 80053; 80202; 82550; 82553; 82962; 83605; 83690; 83880; 84484; 85025; 85610; 85730; 86706; 86850; 86900; 86901; 87040; 87081; 93005; 96374; 96375; 99291

== ENCOUNTER 2020-06-14 23:03 | Emergency (ER) | payer MEDICARE, MEDICAID ==
[~2020-06-14] VITALS: Ht 162.6 cm; Wt 61.2 kg
[~2020-06-14 23:03] MED LIST changes: +KEPPRA500 MG ORAL
--- NOTE | 2020-06-14 23:25 | NUR ---
ED Nurse Note: Pt ambulated into ED, pt AAO x4, pt c/o headache and vomiting x2 after dialysis today (06/14/20). Pt reports he took x1 Tylenol. No sticks/BP in right arm.
[2020-06-14 23:27] VITALS: BP 135/89
--- NOTE | 2020-06-14 23:35 | NUR ---
ED Nurse Note: Dr. Freeman in to see pt.
--- NOTE | 2020-06-14 23:37 | Emergency Room Report ---
History of Present Illness General Chief Complaint: Headache Source: Patient Present Illness HPI 34-year-old male with a history of renal failure on hemodialysis. He presents with chief complaint of headache. Onset today after dialysis. He felt nauseous and vomited a couple times. Pain is 8 out of 10. Throbbing in nature. No focal deficit. Better with ibuprofen. Denies any trauma. Denies any fever chills. No cough or congestion. 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 COVID-19 Screening: Negative COVID-19 Patient History Past Medical History: see triage record, old chart reviewed, HTN, renal disease, dialysis Past Surgical History: other Pertinent Family History: none Social History: Denies: smoking Immunizations: other Reviewed Nursing Documentation: PMH: Agreed; PSxH: Agreed Nursing Documentation-PMH Hx Cardiac Problems: Yes Hx Hypertension: Yes Hx Pacemaker: No Hx Asthma: No Hx COPD: No Hx Diabetes: No Hx Cancer: No Hx Gastrointestinal Problems: No Hx Dialysis: Yes - Wed Hx Neurological Problems: No Hx Cerebrovascular Accident: Yes - Intracerebral bleeding Hx Seizures: No Review of Systems Eye: Denies: eye pain, blurred vision ENT: Denies: ear pain, nose congestion, throat swelling Respiratory: Denies: cough, shortness of breath Cardiovascular: Denies: chest pain, palpitations Gastrointestinal: Denies: abdominal pain, diarrhea, nausea, vomiting Musculoskeletal: Denies: back pain, joint pain Skin: Denies: rash Neurological: Reports: headache; Denies: numbness Endocrine: Denies: increased thirst, increased urine Hematologic/Lymphatic: Denies: easy bruising All Other Systems: negative except mentioned in HPI Physical Exam Vital Signs Date Time Temp Pulse Resp B/P (MAP) Pulse Ox O2 Delivery O2 Flow Rate FiO2 06/14/20 23:08 98.1 90 20 135/89 (104) 96 Room Air Vitals normal Sp02 EP Interpretation: reviewed, normal General Appearance: well appearing, no apparent distress, alert Head: normocephalic, atraumatic Eyes: bilateral eye PERRL, bilateral eye EOMI ENT: hearing grossly normal, normal pharynx Neck: full range of motion, supple, no meningismus Respiratory: chest non-tender, lungs clear, normal breath sounds Cardiovascular #1: regular rate, rhythm, no murmur Gastrointestinal: normal bowel sounds, non tender, no mass, no organomegaly, no bruit, non-distended Musculoskeletal: back normal, normal range of motion, gait/station normal Psychiatric: mood/affect normal Medical Decision Making Diagnostic Impression: Primary Impression: Headache Qualified Codes: R51.9 - Headache, unspecified ER Course This patient presents with headache after dialysis. He denies any symptoms now. No focal deficit. No bleed. CT finding is chronic in nature. Will discharge home. CT/MRI/US Diagnostic Results CT/MRI/US Diagnostic Results : Imaging Test Ordered: CT head Impression Read by radiologist. No acute intracranial abnormality. Unchanged right frontal craniotomy findings. Last Vital Signs Date Time Temp Pulse Resp B/P (MAP) Pulse Ox O2 Delivery O2 Flow Rate FiO2 06/14/20 23:27 98.1 20 135/89 96 Room Air 06/14/20 23:08 90 Status: improved Disposition: HOME, SELF-CARE Condition: Stable Scripts Hydrocodone/Acetaminophen 5-325* (HYDROCODONE/ACETAMINOPHEN 5-325*) 1 Each Tablet 1 TAB ORAL Q6H PRN for For Pain, #15 TAB 0 Refills Prov: Deuce Freeman MD 06/15/20 Referrals: NON PHYSICIAN (PCP) Patient Instructions: General Headache Without Cause Additional Instructions: Follow-up with your doctor in 7 days. Return if worse. Deuce Freeman MD Jun 14, 2020 23:37
[2020-06-14] MEDS ORDERED: HYDROcodone/Acetamin 5/325 tab ORAL ONE (23:45)
--- NOTE | 2020-06-15 | NUR ---
ED Nurse Note: Pt to CT and has returned. Pt is resting.
--- NOTE | 2020-06-15 00:20 | Diagnostic Imaging Report ---
EXAM: CT Head Without Intravenous Contrast CLINICAL HISTORY: PAIN TECHNIQUE: Axial computed tomography images of the head/brain without intravenous contrast. CTDI is 53.40 mGy and DLP is 1018.80 mGy-cm. One or more of the following dose reduction techniques were used: automated exposure control, adjustment of the mA and/or kV according to patient size, use of iterative reconstruction technique. COMPARISON: 10/31/12 FINDINGS: Brain: Unchanged large right frontal encephalomalacia subjacent to the craniotomy. No hemorrhage. No significant white matter disease. Ventricles: Unremarkable. No ventriculomegaly. Bones/joints: Unchanged right frontal craniotomy findings. Soft tissues: Unremarkable. Sinuses: Left sphenoid mucosal thickening could represent sinusitis. Otherwise unremarkable paranasal sinuses. Mastoid air cells: Unremarkable as visualized. No mastoid effusion. IMPRESSION: 1. No acute intracranial abnormality. 2. Unchanged right frontal craniotomy findings. 3. Unchanged large right frontal encephalomalacia subjacent to the craniotomy. 4. Left sphenoid mucosal thickening could represent sinusitis.
[2020-06-15] MEDS ORDERED: HYDROCODON-ACE1 EA15 ORAL (00:57)
== END 2020-06-15 01:10 | disposition home or self-care (01) ==
LOC: EMR 23:33
DX: R51.9 Headache, unspecified (principal); I12.9 Hypertensive chronic kidney disease with stage 1 through stage 4 chronic kidney disease, or unspecified chronic kidney disease; N18.9 Chronic kidney disease, unspecified; I11.9 Hypertensive heart disease without heart failure; Z91.011 Allergy to milk products; Z99.2 Dependence on renal dialysis; Z91.013 Allergy to seafood
CPT/HCPCS: 70450; 99284